=== PATIENT | female | born 1945 | race African-American/Black ===

== ENCOUNTER 2024-08-03 04:00 | Emergency (ER) | payer MEDICARE, SELFPAY ==
--- NOTE | ~2024-08-03 | XR_ITS ---
[XR ribs RT 2V w CXR 2V ] INDICATION: Right rib pain TECHNIQUE: Frontal projection of the upper right ribs, frontal projection of the lower right ribs, ob lique projection of all the right ribs, frontal inspiratory chest x-ray for interpretation. FINDINGS: There are no displaced rib fractures identified. There are no soft tissue abnormality see n. The lungs are clear. 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 IMPRESSION: 1:No acute displaced rib fractures. Reviewed, dictated and finalized at location A. ECTIONS TECHNICIAN
--- NOTE | ~2024-08-03 | CT_ITS ---
EXAMINATION: CT facial & cervical spine wo DATE: 08/03/2024 04:36 INDICATION: Status post fall. Head trauma. TECHNIQUE: Computed tomography (CT) of the maxillofacial region and cervical spine was performed with out intravenous contrast. The dose-length product (DLP) was 181.39 mGy-cm. Automated exposure control and iterative reconstruction technique were employed. COMPARISON: No prior studies for comparison. FINDINGS: MAXILLOFACIAL CT: There are multiple small radiopaque densities in the overlying soft tissues surrounding the facial amelia tracy of uncertain clinical significance. There is deformity of the anterior wall of the left maxillary sinus as well as the left orbital floor, consistent with fractures. There is orbital gas along the l ower orbital floor. There is left maxillary air-fluid level which is high density, consistent with he morrhage. There is fracture of the lateral wall of the left maxillary sinus lamina papyracea is intac t. There is extensive mucosal thickening of the right maxillary, ethmoid sinuses. Air-fluid level pre sent in the sphenoid sinus. Zygomatic arches, pterygoid plates, mandible are intact. There is nondisp laced fracture left nasal bone. CERVICAL SPINE CT: Straightening of cervical lordosis. There is degenerative anterolisthesis at C2-3. There is severe sp ondylosis at C3-4, C4-5, C5-6 and C6-7 characterized by disc narrowing and endplate hypertrophy and s clerosis. Odontoid process is normal. Craniovertebral junction. No evidence for perched facet. 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 Lateral masses normally aligned. There is advanced multilevel uncinate and facet hypertrophy. There is emphysema in the lung apices. No acute fracture or traumati c malalignment. IMPRESSION: 1. Left orbital, maxillary sinus and nasal fractures with hemorrhage in the left maxillary sinus. 2: No acute abnormality of the cervical spine. Severe cervical spondylosis. Reviewed, dictated and finalized at location A. YTICS SENIOR MANAGER IMPRESSION: 1. Left orbital, maxillary sinus and nasal fractures with hemorrhage in the lef t maxillary sinus. 2: No acute abnormality of the cervical spine. Severe cervical spondylosis.
--- NOTE | ~2024-08-03 | CT_ITS ---
EXAMINATION: CT BRAIN W/O DATE: 08/03/2024 04:36 INDICATION: Head injury after fall. TECHNIQUE: Computed tomography (CT) of the head was performed without intravenous contrast. The dose- length product was 605.33 mGy-cm. Automated exposure control and iterative reconstruction technique w ere employed. COMPARISON: No prior studies for comparison. FINDINGS: Normal brain parenchymal volume for age. Normal hyatt-white differentiation. No acute intrac ranial hemorrhage, infarction, mass or mass effect. There is high density fluid in the left maxillary sinus, consistent with hemorrhage. There are air-fl uid levels in the ethmoid and sphenoid sinuses. There is orbital gas in the post septal location, nathalie picious for orbital floor fracture. There is also a possible fracture involving the left maxillary si nus wall. There is orbital gas with suggestion of an orbital floor fracture on the left. IMPRESSION: 1. No acute intracranial abnormality. 2: Probable fractures of the left orbital floor and maxillary sinus with hemorrhage in the left maxil adilia sinus. Reviewed, dictated and finalized at location A. PATIAL IMAGERY INTELLIGENCE ANALYST IMPRESSION: 1. No acute intracranial abnormality. 2: Probable fractures of the left orbital floor and maxillary sinus with hemorr jessica in the left maxillary sinus.
--- OUTSIDE RECORDS SUMMARY | 2024-08-03 04:03 | XMS_ITS | Encounter Summary ---
Author Organization [facility] Medical [facility] Address [address] [place] [address] Care Team Providers Care Electrode Cleaning Machine Operator Name Role Phone Vitor Avina MD Primary Care Provider + [phone] Sally Mayer MIXER HELPER Primary Care Provider + [phone] Sally Mayer MIXER HELPER Primary Care Provider + [phone] Sally Mayer MIXER HELPER Primary Care Provider + [phone] Gurwinder Pardo MIXER HELPER Primary Care Provi liz Carlos Howe MD Unavailable +[phone] Srinivas Marsh DPM, Gabriel Unavailable + [phone] Ludy Calvillo MD Unavailable +[phone] Rufina Castro MD Unavailable +[phone] Cari Chan MIXER HELPER Primary Care Provider [phone] Priscilla Moran MD Unavailable +[phone] Ami Horne OD Unavailable [phone] Woodrow Engel MD Primary Care Provider [phone] Yolette Moran DPM Unavailable [phone] Ami Horne OD Unavailable [phone] Billie Summers MD Unavailable [phone] Encounter Details Date Type Department Care Team (Late st Contact Info) Description 07/22/2016 Orders Only [facility] ProviderJocelyn MD [address] [place] [address] Social History Tobacco Use Types Packs/Day Years Used Date Smoking Tobacco: Never Alcohol Use Standard Drinks/Week Comments No 0 (1 standard drink = 0.6 oz pur e alcohol) Comments Unknown Sex and Gender Information Value Date Recorded Sex Assigned at Not on file Legal Sex Female 4:33 PM OPHTHALMIC TECH Gender Identity Female 04/08/2020 10:03 AM CDT Sexual Orientation Straight 07/09/2019 11 :55 AM OPHTHALMIC TECH documented as of this encounter Plan of Treatment Not on file documented as of this encounter Procedures Procedure Name Priority Date/Time Associated Diagnosis Comments CARDIOLOGY REPORT 07/22/2016 documented in this encounter Results * CARDIOLOGY REPORT (07/22/2016) Anatomical Region Laterality Modality Other Narrative 07/22/2016 Ordered by an unspecified provider. Historical Provider [facility] Final Result documented in this encounter Visit Diagnoses Not on filedocumented in this encounter Care Teams Electrode Cleaning Machine Operator Relationship Specialty Start Date End Date Vitor Avina MD [address] [place] [address] PCP - General 08/16/16 09/02/16 Sally Mayer MIXER HELPER [address] [place] [address] [address] PCP - General 10/01/16 12/01/17 Sally Mayer, MIXER HELPER [address] [place] [address] [address] PCP - General 09/03/16 09/30/16 Sally Mayer MIXER HELPER [address] [address] PCP - General 05/22/15 08/15/16 [place] [address] [address] PCP - General Family Practice 12/02/17 01/04/18 Cari Chan NP [address] [address] PCP - General Family Medicine 03/13/21 12/01/21 Woodrow Engel MD [address] [place] [address] PCP - General Family Medicine 12/02/21 [place] [address] [address] Consulting Physician Cardiology 01/05/18 Juarez Espino Jr., DPM [address] [address] Referring Physician 01/05/18 12/01/21 [place] [address] [address] Referring Physician Internal Medicine 01/05/18 Rufina Alcantara MD [address] [facility] [address] [place] [address] Referring Physician Obstetrics and Gynecology 01/05/18 12/05/22 [place] [address] [facility] [address] [place] [address] Consulting Physician Endocrinology 04/30/21 Ami Horne, OD [address] [facility] [place] [address] Optometry 04/30/21 Yolette Moran DPM [address] [place] [address] [id number] Consulting Physician Foot and Ankle Surg 12/02/21 Ami Horne, SHAILESH [address] [facility] [place] [address] Optometry 06/03/22 Billie Summers MD [address] [place] [address] DR JOHN [address] [place] [address] Consulting Physician Obstetrics and Gynecology 12/06/22 documented as of this encounter
--- OUTSIDE RECORDS SUMMARY | 2024-08-03 04:03 | XMS_ITS | Clinical Summary ---
Author Organization [facility] Address [address] [place] [address] Care Team Providers [employer] Name Role Phone Carlos Howe MD Unavailable [phone] Priscilla Moran MD Unavailable [phone] Ami Horne OD Unavailable [phone] Woodrow Engel MD Primary Care Provider Yolette MoranM Unavailable [phone] Ami Horne OD Unavailable Billie Summers MD Unavailable [phone] Allergies Active Allergy Reactions Criticality Noted Date Comments Nitrofurantoin Macrocrystalline Rash Medium 03/2006 Sulfa (Sulfonamide Antibiotics) Hives,Itching Medium Medications multivitamin tablet tablet take 1 tablet by oral route every day with food 0 2 Active calcium citrate-vitamin D3 (CALCIUM CITRATE + D) 315-200 mg-unit per tablet take 1 by Oral route every day 0 2 Active vit C/vit E ac/lut/copper/zi nc (PRESERVISION LUTEIN ORAL) Take 1 tablet by mouth daily 9 Active ibuprofen (ADVIL,MOTRIN) 600 mg tabletIndication s:Anti-inflammat ory Take 1 tablet (600 mg total) by mouth every 8 (eight) hours as needed for pain 270 tablet 3 Active cartilage/collag en/bor/hyalur (MOVE FREE ULTRA TRIPLE ACTION ORAL) 7 Active psyllium 0.52 gram capsule 3 Active OneTouch Delica Plus Lancet 33 gauge misc ONE TOUCH DELICA PLUS 33 G CHECK BLOOD SUGAR DAILY 4 Active blood glucose diagnostic stripIndications :Type 2 diabetes mellitus with hyperglycemia, without long-term current use of insulin ([facility]) One Touch Ultra Lite Test Strips Use to test blood sugar once daily. (Non insulin dependent E11.65) 100 strip 6 4 Active glipiZIDE (GLUCOTROL) 10 mg tabletIndication s:Type 2 diabetes mellitus with hyperglycemia, without long-term current use of insulin ([facility]) Take 1 tablet (10 mg total) by mouth 2 (two) times a day before breakfast and dinner 180 tablet 3 4 08/24/19 25 Active dapagliflozin propanediol (Farxiga) 10 mg tabletIndication s:Type 2 diabetes mellitus with hyperglycemia, without long-term current use of insulin ([facility]) TAKE 1 TABLET BY MOUTH EVERY DAY 90 tablet 2 4 Active zolpidem (AMBIEN) 5 mg tablet Take 1 tablet (5 mg total) by mouth daily as needed for sleep 30 tablet 1 4 Active clotrimazole-bet amethasone (LOTRISONE) cream Apply topically 2 (two) times a day 45 g 1 4 Active famotidine (PEPCID) 40 mg tabletIndication s:Gastroesophage al reflux disease without esophagitis TAKE 1 TABLET BY MOUTH EVERY DAY 90 tablet 1 4 Active bimatoprost (LATISSE) 0.03 % ophthalmic solution APPLY 1 DROP VIA APPLICATOR EVERY NIGHT AT BEDTIME 4 Active losartan (COZAAR) 50 mg tabletIndication s:Hypertension associated with type 2 diabetes mellitus (HCC) TAKE 1 TABLET BY MOUTH DAILY 90 tablet 3 4 Active diltiaZEM CD (CARDIZEM CD) 360 mg 24 hr capsule TAKE 1 CAPSULE BY MOUTH DAILY 90 capsule 4 Active semaglutide (Ozempic) 0.25 mg or 0.5 mg (2 mg/3 mL) pen injector injectionIndicat ions:Type 2 diabetes mellitus with hyperglycemia, without long-term current use of insulin (HCC) Inject 0.25 mg under the skin once a week 2 mL 3 4 06/11/20 25 Active Active Problems Problem Noted Date Diagnosed Date CKD (chronic kidney disease) stage 3, GFR 30-59 ml/min 12/19/2023 Medicare annual wellness visit, subsequent 06/13 Assessment & Plan (06/19/2024 11:32 AM FOOT ROENTGENOLOGIST): A(n) yearly Medicare Annual Wellness Visit has been performed today. Kathy Hill is not up to date on screening tests. She is in need of Hepatitis B screen. She is up to date on needed preventative vaccinations. We discussed healthy lifestyle habits, educational material has been given. Medications reviewed, changes documented as per the medical record and discussed with patient along with risks vs benefits. Specific topics reviewed: drugs, ETOH, and tobacco, importance of regular dental care, importance of regular exercise, importance of varied diet, limit TV, media violence, minimize junk food, and seat belts. Return in 6 months Assessment & Plan (06/13/2023 10:46 AM FOOT ROENTGENOLOGIST): A(n) yearly Medicare Annual Wellness Visit has been performed today. Kathy Hill is up to date on screening tests. She is in need of None- no screening indicated at this time. She is up to date on needed preventative vaccinations. We discussed healthy lifestyle habits, educational material has been given. Medications reviewed, changes documented as per the medical record and discussed with patient along with risks vs benefits. Discussed postherpetic neuralgia Return in 6 months Well woman exam 08/30/2022 Overview (09/05/2023): Lab: Pap: h/o abnormal prior to hyst, last done 08/30/22 Lipid: per PCP TSH: per PCP CBC: per PCP CMP: per PCP Babak: Last done 07/21/23, negative for malignancy Colonoscopy: Last done 2016, follow-up in 2026 BMD: Last done 02/01/22, WNL Gardasil: Not indicated Assessment & Plan (09/05/2023 11:05 AM FOOT ROENTGENOLOGIST): Complete exam done. The patient was seen and examined with Dr. Alvarez, PGY1 Assessment & Plan (08/30/2022 9:56 AM FOOT ROENTGENOLOGIST): Complete exam done. Hormone replacement therapy (HRT) 08/30/2022 Assessment & Plan (09/05/2023 4:56 PM FOOT ROENTGENOLOGIST): She is not happy about having HF and night sweats Options discussed. She is wanting to go back on HRT after reviewing that the current recommendation is to stop after 60 as it is hard on the heart and may increase her risk of [place] Currently her DM is under control She is only going to see cardiology yearly States the HF/NS are going to kill her if she doesn't get something. Declines other non hormonal options. To start on 1/2 tablet to avoid breast tenderness. If her sx are controlled with this, she can stay on it and not increase. Assessment & Plan (09/15/2022 9:36 AM CDT): I spoke with the pt (09/15/22 9:35 phone call)) about her HRT. She is doing so well on it, it is hard to recommend any change. We discussed the recent article by the AHA supporting the use of ERT up to age 60, but recommending stopping after that. She is worried about sx and I do think she will have some after stopping especially if she goes cold turkey. I would recommend if she is going to stop, then she should wean, 1/2 the tablet the 1/4 it q 6 weeks. She will think about. If she gets off of it and has sx we will have to find another way to deal with them as restarting HRT would not be recommended. Gastroesophageal reflux disease without esophagi tis 08/04/2022 Overview (08/04/2022): continuing Pepcid 40 mg qhs cardiac work up with her tire sorter was negative. Administrative encounter 06/03/2022 Assessment & Plan (06/03/2022 1:31 PM FOOT ROENTGENOLOGIST): A(n) yearly [facility] Encounter has been performed today. Kathy Hill is up to date on screening tests. She is in need of None- no screening indicated at this time- eye exam performed this year at [facility]. She is up to date on needed preventative vaccinations Labs as ordered Referrals also ordered as requested BP is controlled Continuing current regimen Microalbuminuria due to type 2 diabetes mellitus ([facility]) 04/16/2020 Assessment & Plan (06/11/2024 9:20 AM FOOT ROENTGENOLOGIST): Resolved. On PAOLA-I / ARB: Losartan 50mg. Last MA: 01/24/23 (16). Assessment & Plan (08/25/2023 11:29 AM FOOT ROENTGENOLOGIST): Resolved. On PAOLA-I / ARB: Losartan 50mg. Last MA: 01/24/23 (16). Assessment & Plan (05/16/2023 10:55 AM FOOT ROENTGENOLOGIST): Chronic problem; improved. On PAOLA-I / ARB: Losartan 50mg. Last MA: 01/24/23 (16). Assessment & Plan (01/24/2023 10:51 AM CDT): Chronic problem. On PAOLA-I / ARB: Losartan 50mg. Last MA: 12/02/21 (45). Will update MA/Cr today. Verified that she uses [employer]. Aware to check results/results letter in [employer]. Will contact by phone if needed. Assessment & Plan (07/12/2022 10:36 AM FOOT ROENTGENOLOGIST): Pt on losartan BP and DM well controlled Assessment & Plan (01/11/2022 9:59 AM CDT): Pt on losartan BP and DM well controlled Assessment & Plan (05/02/2021 1:10 PM CDT): Continue Arb. Last microalbumin 04/08/2021 normal Assessment & Plan (01/12/2021 1:33 PM CDT): Pt on losartan BP and DM well controlled Assessment & Plan (07/28/2020 1:22 PM FOOT ROENTGENOLOGIST): Pt on losartan BP and DM well controlled Diabetes mellitus 01/05/2018 Assessment & Plan (06/11/2024 9:20 AM FOOT ROENTGENOLOGIST): Chronic problem. A1c stable at 6.7%. no changes at this time. Again discussed decreasing glipizide to 5mg bid if BG start to lower consistently. Current medications: Glipizide 10mg twice daily before breakfast & dinner Farxiga 10mg daily Ozempic 0.25mg weekly UTD on DM eye exam (09/13/23). Will update MA/Cr today. Verified that she uses my[employer]. Aware to check results/results letter in [employer]. Will contact by phone if needed. Strive for regular exercise (30min most days) and diet (get at least 4-5 servings of fruit and veggies daily, avoid processed foods, increase lean protein intake and decrease carb portions as well as fruit juices, regular soda & desserts). Watch carbs and simple sugars. Check the feet daily for skin breakdown and infection. Assessment & Plan (12/26/2023 2:10 PM CDT): Chronic problem. A1c stable at 6.7%. no changes at this time. Again discussed decreasing glipizide to 5mg bid if BG start to lower consistently. Current medications: Glipizide 10mg twice daily before breakfast & dinner Farxiga 10mg daily Ozempic 0.25mg weekly UTD on DM eye exam (09/13/23). Will update MA/Cr today. Verified that she uses my[employer]. Aware to check results/results letter in [employer]. Will contact by phone if needed. Strive for regular exercise (30min most days) and diet (get at least 4-5 servings of fruit and veggies daily, avoid processed foods, increase lean protein intake and decrease carb portions as well as fruit juices, regular soda & desserts). Watch carbs and simple sugars. Check the feet daily for skin breakdown and infection. Assessment & Plan (08/25/2023 11:31 AM FOOT ROENTGENOLOGIST): Chronic problem. A1c improved from 8.5% 05/16/23 to now 6.7%. denies any hypoglycemia. Has not lost weight with ozempic. Discussed decreasing glipizide to 5mg bid if BG start to lower consistently. Current medications: Glipizide 10mg twice daily before breakfast & dinner Farxiga 10mg daily Ozempic 0.25mg weekly UTD on DM eye exam (09/2022, scheduled 09/13/23). UTD on labs. Strive for regular exercise (30min most days) and diet (get at least 4-5 servings of fruit and veggies daily, avoid processed foods, increase lean protein intake and decrease carb portions as well as fruit juices, regular soda & desserts). Watch carbs and simple sugars. Check the feet daily for skin breakdown and infection. Assessment & Plan (05/16/2023 11:30 AM FOOT ROENTGENOLOGIST): Chronic problem. A1c increasing steadily throughout this year. A1c was 7.1% 07/2022, 7.8% 01/2023 now 8.5%. Reviewed diet/activity. Carb heavy diet. Info on ADA website (looked at it during appt w/Mrs Hill). Stressed need to exercise 20-30 min/day. Has been taking meds as prescribed but A1c continues to rise. Will trial Ozempic. Reviewed med SE & scheduling. To stop if she loses weight. To monitor BS. She will let me know if too expensive. Please start 20-30 min activity/day. Current medications: Glipizide 10mg twice daily before breakfast & dinner Farxiga 10mg daily Ozempic 0.25mg weekly UTD on DM eye exam. UTD on labs. Strive for regular exercise (30min most days) and diet (get at least 4-5 servings of fruit and veggies daily, avoid processed foods, increase lean protein intake and decrease carb portions as well as fruit juices, regular soda & desserts). Watch carbs and simple sugars. Check the feet daily for skin breakdown and infection. Assessment & Plan (01/24/2023 11:31 AM CDT): Chronic problem. A1c worsening. Does not feel that the glipizide 10mg bid is helpful. Will add farxiga 10mg daily to glipizide 10mg bid. Will monitor BS & drop glipizide to 5mg bid. To send me a mychart in 1-2 weeks with BS readings. UTD on DM eye exam. Will update MA/Cr today. Verified that she uses [employer]. Aware to check results/results letter in [employer]. Will contact by phone if needed. Strive for regular exercise (30min most days) and diet (get at least 4-5 servings of fruit and veggies daily, avoid processed foods, increase lean protein intake and decrease carb portions as well as fruit juices, regular soda & desserts). Watch carbs and simple sugars. Check the feet daily for skin breakdown and infection. Assessment & Plan (07/12/2022 10:36 AM FOOT ROENTGENOLOGIST): Chronic, overall fairly controlled A1c - 7.1 % Advised to take glipizide 10 mg - 1/2 tab with breakfast and 1 tab with dinner Advise to take glipizide 30 min before meals And Also advised to switch her lunch with dinner and viseversa Counseled on hypoglycemia - recommend annual dilated eye exam - try to obtain pt last eye exam copy Daily foot care - f/w in 6 months Assessment & Plan (01/11/2022 10:00 AM CDT): Chronic, uncontrolled, slight worsening A1c - 7.2 % Advise to change glipizide to 5 mg oral BID with meals If having low BS advise to back off on glipizide and notify us Counseled on hypoglycemia - recommend annual dilated eye exam Daily foot care - f/w in 6 months Assessment & Plan (05/02/2021 1:11 PM CDT): Diabetes is well controlled on glipizide 5 mg daily. Continue regular follow-up with endocrinology Assessment & Plan (01/12/2021 1:33 PM CDT): Chronic, Improving control A1c - 6.2 % Keep working on portion, carb controlled diet and exercise Advise to continue Glipizide XL 5 Mg oral daily with meals Advise pt to check BS 2-3 x weekly Keep up annual dilated eye exam Daily foot care Follow up in 12 months Assessment & Plan (07/28/2020 1:23 PM FOOT ROENTGENOLOGIST): Chronic, Improving control A1c - 6.2 % Keep working on portion, carb controlled diet and exercise Advise to continue Glipizide XL 5 Mg oral daily with meals Advise pt to check BS 2-3 x weekly Keep up annual dilated eye exam Daily foot care Follow up in 6 months Assessment & Plan (01/14/2020 1:36 PM CDT): Chronic, Fair controlled A1c - 6.8 % Keep working on portion, carb controlled diet and exercise Advise to continue Glipizide XL to 5 Mg oral daily with dinner Advise pt to check BS 2-3 x weekly Keep up annual dilated eye exam Daily foot care Follow up in 6 months Assessment & Plan (07/18/2019 9:07 AM FOOT ROENTGENOLOGIST): Chronic, Fair controlled A1c - 6.7 % Advise to increase Glipizide XL to 5 Mg oral daily with dinner Advise pt to check BS 2-3 x weekly Check A1c in 3 months Keep up annual dilated eye exam Daily foot care Follow up in 6 months Hypertension associated with type 2 diabetes elissa litus 01/05/2018 Assessment & Plan (06/24/2024 10:00 PM FOOT ROENTGENOLOGIST): Blood Pressure Follow-up: Lifestyle modifications education provided on sodium reduction, increase physical activity, reduce alcohol consumption, and weight reduction. A1c stable at 6.7% Continuing diltiazem CD, losartan, glipizide, Farxiga Assessment & Plan (06/11/2024 9:20 AM FOOT ROENTGENOLOGIST): Chronic problem. Controlled on current Losartan 50mg daily, diltiazem CD 360mg daily. No changes at this time. Assessment & Plan (12/26/2023 2:10 PM CDT): Chronic problem. Controlled on current Losartan 50mg daily, diltiazem CD 360mg daily. No changes at this time. Assessment & Plan (08/25/2023 11:31 AM FOOT ROENTGENOLOGIST): Chronic problem. Controlled on current Losartan 50mg daily, diltiazem CD 360mg daily. No changes at this time. Assessment & Plan (05/16/2023 10:50 AM FOOT ROENTGENOLOGIST): Chronic problem. Controlled on current Losartan 50mg daily, diltiazem CD 360mg daily. No changes at this time. Assessment & Plan (01/24/2023 10:50 AM CDT): Chronic problem. Controlled on current Losartan 50mg daily, diltiazem CD 360mg daily. No changes at this time. Assessment & Plan (12/09/2022 9:01 PM CDT): Will recheck labs in 4 months Continuing current regimen BP is controlled Continuing diltiazem, losartan, glipizide Assessment & Plan (07/12/2022 10:35 AM FOOT ROENTGENOLOGIST): Chronic, well controlled, continue Losartan Assessment & Plan (01/11/2022 9:58 AM CDT): Chronic, well controlled, continue current medication regimen Assessment & Plan (05/02/2021 1:10 PM CDT): Hypertension is improving with treatment. Continue current treatment regimen. Dietary sodium restriction. Continue current medications. Continue diltiazem 360 mg once daily and losartan 50 mg daily Blood pressure will be reassessed at the next regular appointment. Assessment & Plan (01/12/2021 1:33 PM CDT): Chronic, well controlled, continue current medication regimen Assessment & Plan (07/28/2020 1:22 PM FOOT ROENTGENOLOGIST): Chronic, well controlled, continue current medication regimen Assessment & Plan (01/14/2020 1:35 PM CDT): Chronic, well controlled, continue current medication regimen Assessment & Plan (07/18/2019 9:08 AM FOOT ROENTGENOLOGIST): Chronic, well controlled, continue current medication regimen Hypokalemia 01/05/2018 Diastolic dysfunction without heart failure 04/03 Paroxysmal supraventricular tachycardia 07/22/19 17 Overview (10/08/2016): PSVT (paroxysmal supraventricular tachycardia) Assessment & Plan (05/02/2021 1:09 PM CDT): Well controlled on diltiazem 360 mg once daily. Continue regular follow-up with Cardiology. Assessment & Plan (06/15/2017 8:27 PM FOOT ROENTGENOLOGIST): Controlled at this time. Following with tire sorter. Trochanteric bursitis 05/22/2015 Overview (10/08/2016): Trochanteric bursitis of right hip Palpitations 01/14/2014 Insomnia 01/14/2014 Assessment & Plan (06/15/2017 8:33 PM FOOT ROENTGENOLOGIST): Plan to start Ambien 5 mg at HS prn. Primary osteoarthritis of knee 12/29/2005 Other chest pain 12/10/2005 Allergic rhinitis 05/26/2004 Resolved Problems Problem Noted Date Diagnosed Date Resolved Date [facility] 01/24/2023 Assessment & Plan (12/04/2021 2:30 PM CDT): A(n) initial well visit to establish care has been performed today. Kathy Hill is up to date on screening tests. She is in need of DEXA and Diabetic eye exam- we are getting records. She is up to date on needed preventative vaccinations Labs as ordered Continuing the current regimen Continuing follow up Dr. Ramos-Richard Bilateral impacted cerumen 04/16/2020 1 Osteoarthrosis involving lower leg 01/05/2018 01/05/2018 Helicobacter pylori infection 01/05/2018 01/05/2018 Abnormal glucose tolerance test 01/05/2018 01/05/2018 Routine general medical exam ination at a health care facility 01/05/2018 01/05/2018 Sleep disturbance 01/05/2018 01/05/2018 Dyslipidemia associated with type 2 diabetes mellitus 10/26/2017 01/05/2018 Dizziness 07/22/2016 01/05/2018 Overview (10/08/2016): Dizziness Shortness of breath 07/22/2016 01/06/20 18 Overview (01/05/2018): PEDERSEN (dyspnea on exertion) Benign essential hypertension 08/13/2014 01/05/2018 Overview (10/08/2016): Benign essential hypertension Polyp of vagina 03/19/2014 08/30/2022 Chronic pelvic pain in female 01/14/2014 01/05/2018 Postmenopausal bleeding 01/14/201411/2017 Leiomyoma of uterus, unspecified 01/14/2014 01/05/2018 Constipation 01/14/2014 01/05/2018 Vaginitis and vulvovaginitis 01/14/2014 04/04/2018 Mitral valve prolapse 01/14/20142017 Other specified abnormal fin dings of blood chemistry 02/04/2009 01/05/2018 Type 2 or unspecified type d iabetes mellitus, uncontrolled 01/16/2008 04/04/2018 Assessment & Plan (06/15/2017 8:29 PM FOOT ROENTGENOLOGIST): Diabetes is well controlled. Hgb A1c today was 6.6%. Continue current treatment regimen. Reminded to bring in blood sugar diary at next visit. Dietary recommendations for ADA diet. Regular aerobic exercise. Discussed ways to avoid symptomatic hypoglycemia. Discussed sick day management. Discussed foot care. Reminded to get yearly retinal exam. Diabetes will be reassessed in 3 months. Asymptomatic postmenopausal status 12/10/2005 01/05/2018 Other general symptoms 12/10/200501/05 Urinary tract infection 12/10/200511/2017 Encounter for long-term (cur rent) use of other medications 05/26/2004 01/05/2018 Low back pain 05/26/2004 01/05/2018 Osteoarthrosis 05/26/2004 01/05/2018 Localized superficial swelling, mass, or lump 03/10/2001/05/2018 Backache 11/22/2000 01/05/2018 Other and unspecified hyperlipidemia 10/13/2000 01/05/2018 Abdominal pain 10/13/2000 01/05/2018 Other symptoms involving digestive system 10/13/2000 01/05/2018 Screening for malignant neop lasm of the rectum 10/13/2000 01/05/2018 Encounters Date Type Department Care Team Description 07/23/2024 11:15 AM FOOT ROENTGENOLOGIST - 07/23/2024 11:59 PM FOOT ROENTGENOLOGIST Hospital Encounter [facility] Imaging and Radiology [address] [place] [id number] Screening mammogram, encounter for Discharge Disposition: Discharge to home or self care 06/19/2024 11:15 AM FOOT ROENTGENOLOGIST Office Visit [facility] at [address] [phone] Woodrow Engel MD Medicare annual wellness visit, subsequent (Primary Dx); Microalbuminuria due to type 2 diabetes mellitus (CMS/HCC) (HCC); Hypertension associated with type 2 diabetes mellitus (HCC); Diastolic dysfunction without heart failure; Paroxysmal supraventricular tachycardia (CMS/HCC); Gastroesophageal reflux disease without esophagitis; Stage 3a chronic kidney disease (HCC) 06/15/2024 Telephone [facility] Diabetes and Endocrinology [address] [place] [phone] Rola Singh NP Test Results (Labs) 06/14/2024 Orders Only [facility] Diabetes and Endocrinology [address] [place] [address] [phone] Rola Singh NP Acute cystitis without hematuria (Primary Dx) 06/11/2024 10:04 AM FOOT ROENTGENOLOGIST - 06/11/2024 11:59 PM FOOT ROENTGENOLOGIST Hospital Encounter [address] [address] Type 2 diabetes mellitus with hyperglycemia, without long-term current use of insulin ([facility]); Cloudy urine; Foul smelling urine Discharge Disposition: Discharge to home or self care 06/11/2024 10:00 AM FOOT ROENTGENOLOGIST Lab [facility] Outpatient Lab at [address] [phone] 06/11/2024 9:30 AM FOOT ROENTGENOLOGIST Office Visit [facility] Diabetes and Endocrinology [address] [place] [phone] Rola Singh, PRESS MANAGER Type 2 diabetes mellitus with hyperglycemia, without long-term current use of insulin (HCC) (Primary Dx); Hypertension associated with type 2 diabetes mellitus (HCC); Cloudy urine; Foul smelling urine 06/11/2024 Telephone [facility] Diabetes and Endocrinology [address] [place] [phone] Rola Singh, PRESS MANAGER samples of Ozempic 06/05/2024 9:49 AM FOOT ROENTGENOLOGIST - 06/05/2024 11:59 PM FOOT ROENTGENOLOGIST Hospital Encounter [place] [phone] Hypertension associated with type 2 diabetes mellitus (HCC) Discharge Disposition: Discharge to home or self care 06/05/2024 9:45 AM FOOT ROENTGENOLOGIST Lab [facility] Medical [facility] Outpatient Lab at [address] [phone] Hypertension associated with type 2 diabetes mellitus (HCC) (Primary Dx) from Last 3 Months Immunizations Name Administration Dates Next Due Influenza, Quad, Adjuvantate d, Intramuscular 04/15/2023 Influenza, Quadrivalent, Hig h Dose, Preservative Free, Intrr 04/04/2022,04/16/2020 Influenza, Quadrivalent, Spl it, Preservative Free, Intramuscular 04/04/2018 Influenza, Trivalent, Adjuva nted, Intramuscular 04/12/2024 Influenza, Trivalent, High D ose, Split, Preservative Free, Intramuscular 04/03/2016 Influenza, Trivalent, IM (MDV) 04/03/2015,2013 Influenza, Unspecified 07/04/2022(Deferr ed: Patient Refused),04/14/2022,07/04/2021(Deferre d: Patient Refused),04/03/2021,04/03/2017 Pfizer Sars-Cov-2 Bivalent V accination (12+ YRS) 03/24/2022 Pneumococcal Conjugate PCV 13 08/05/2016, 014 Pneumococcal Polysaccharide PPV23 07/04/2016, RSV Vaccine, Pref, Recombina nt, Subunit, Adjuvanted, PF, IM (Arexvy) 05/08/2023 Tdap 12/28/2018 ZOSTER LIVE 07/04/2013 ZOSTER Recombinant 06/16/2020,04/16/2020 Surgical History Surgery Date Site/Laterality Comments BREAST BIOPSY 07/04/1964 Left DILATION AND CURETTAGE OF UTERUS multiple from [id number] TUBAL LIGATION 07/04/1994 - 07/03/1995 ROTATOR CUFF REPAIR 07/04/2011 - 07/03/2012 Right TOTAL ABDOMINAL HYSTERECTOMY W/ BILATERAL SALPINGOOPHORECTOMY 07/04/2013 - 07/03/2014 Done to treat large benign tumor. CATARACT EXTRACTION 07/04/2016 - 07/03/2017 FOOT SURGERY Right metarsal Medical History Medical History Date Comments Osteoarthritis Osteoarthritis Rotator cuff tear 2010 Hyperlipidemia 10/13/2000 Type 2 diabetes mellitus (HCC) 01/16/2008 Hypertension Helicobacter pylori infection 01/05/2018 Mitral valve prolapse 01/14/2014 Constipation 01/14/2014 Family History Medical History Relation Name Comments No Known Problems Father Prostate cancer Maternal Grandfather Bobby Lopez age unknown Diabetes Maternal Grandmother Deedee Thomas, Dementia Mother Deloyd Prothro in memory car e Hypertension Mother Deloyd Prothro Memory loss Mother Deloyd Prothro Diabetes Mother's Sister 1 Ailyn Madison Hypertension Mother's Sister 1 Ailyn Skye Stomach cancer Mother's Sister 1 Ailyn Skye Stroke Mother's Sister 2 Margy M Toro No Known Problems Paternal Grandfather No Known Problems Paternal Grandmother Diabetes Sister Deedee Johnson Hypertension Sister Deedee Johnson Obesity Sister Deedee Johnson Breast cancer Neg Hx Cancer Neg Hx no colon, breas t or studio owner cancer 08/30/22 Endometrial cancer Neg Hx Ovarian cancer Neg Hx Thyroid cancer Neg Hx Relation Name Status Comments Father Maternal Grandfather Bobby Lopez Maternal Grandmother Deedee Thomas, Mother Deloyd Prothro Mother's Sister 1 Ailyn Skye Mother's Sister 2 Margy M Toro Paternal Grandfather Paternal Grandmother Sister Deedee Johnson Social History Tobacco Use Types Packs/Day Years Used Date Smoking Tobacco: Never Passive Smoke Exposure: Never Smokeless Tobacco: Never Tobacco Cessation:Counseling Given: Not Answered Alcohol Use Standard Drinks/Week Comments No 0 (1 standard drink = 0.6 oz pur e alcohol) Humiliation, Afraid, Rape, and Kick questionnair e Answer Date Recorded Within the last year, have y ou been afraid of your partner or ex-partner? No 08/30/2022 Within the last year, have y ou been humiliated or emotionally abused in other ways by your partner or ex-partner? No Within the last year, have y ou been kicked, hit, slapped, or otherwise physically hurt by your partner or ex-partner? No 08/30/2022 Within the last year, have y ou been raped or forced to have any kind of sexual activity by your partner or ex-partner? No 08/30/2022 AUDIT-C Answer Date Recorded Q1: How often do you have a drink containing alcohol? Never 06/13/2023 Q2: How many drinks containi ng alcohol do you have on a typical day when you are drinking? Patient does not drink Q3: How often do you have si x or more drinks on one occasion? Never 06/13/2023 PHQ-2 Answer Date Recorded PHQ-2 Total Score (If total score is 3 or more points, staff should administer the PHQ-9) 0 06/19/2024 Education Answer Date Recorded What is the highest level of school you have completed or the highest degree you have received? 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 Not on file Not on file Obstetrics History Para Term AB IAB SAB Ectopic Multiple Livin g Live Births 1 1 1 1 1 Date Outcome GA Total Labor Labor/2nd/3rd Weight Sex Type Anes PTL Crystal A1 A5 Name Clin 12/20 72 Term 38w 0d 2.24 kg (4 lb 15 oz) M Vag-S pont Epidura l Living Complications:None Last Filed Vital Signs Vital Sign Reading Time Taken Comments Blood Pressure 144/80 06/19/2024 11:27 AM FOOT ROENTGENOLOGIST Pulse 71 06/19/2024 11:27 AM FOOT ROENTGENOLOGIST Temperature 35.9 ??C (96.7 ??F) 06/19/2024 11:[address] Respiratory Rate 16 06/19/2024 11:27 AM FOOT ROENTGENOLOGIST Oxygen Saturation 96% 06/19/2024 11:27 AM FOOT ROENTGENOLOGIST Inhaled Oxygen Concentration - - Weight 59 kg (130 lb) 06/19/2024 11:27 AM FOOT ROENTGENOLOGIST Height 163.2 cm (5' 4.25 ) 06/19/2024 11:[address] Body Mass Index 22.14 06/19/2024 11:27 AM FOOT ROENTGENOLOGIST Plan of Treatment Health Maintenance Due Date Last Done Comments Hepatitis B Screening 1963 Foot Exam 08/25/2024 08/25/2023, 03/2023, 01/11/2022, Additional history exists Dilated Eye Exam 09/12/2024 09/13/2023, 01/2023, 10/03/2021, Additional history exists Hemoglobin A1C 12/04/2024 06/05/2024, 0 09/2023, 08/25/2023, Additional history exists Lipid Panel 06/05/2025 06/05/2024, 04/04, 12/05/2023, Additional history exists eGFR 06/05/2025 06/05/2024, 09/2023, 06/08/2023, Additional history exists Albumin Creatinine Ratio, Urine 06/11/2025 06/11/2024, 01/24/2023, 12/02/2021, Additional history exists Depression Screening 06/19/2025 06/19/2024, 06/11/2024, 12/19/2023, Additional history exists Fall Risk Assessment 06/19/2025 06/19/2024, 06/11/2024, 12/19/2023, Additional history exists Well Visit 65+ 06/19/2025 06/19/2024, 06/03, 06/03/2022, Additional history exists Osteoporosis Screening-Bone Density Scan 02/19/2026 02/20/2024, 02/01/2022, 12/19/2019, Additional history exists DTaP/Tdap/Td Vaccine (2 - Td or Tdap) 12/28/2028 12/28/2018 Pneumococcal vaccine 65+ Completed 017, 07/04/2016, 07/04/2013, Additional history exists Colon Cancer Screening-CT Colonography Discontinued 09/03/2016 Colon Cancer Screening-Colonoscopy Discontinued 09/03/2016 Colon Cancer Screening-DNA Stool Discontinued 09/04/19 17 Colon Cancer Screening-FIT Discontinued 09/03/2016 Colon Cancer Screening-FOBT Discontinued 09/03/2016 Colon Cancer Screening-Sigmoidoscopy Discontinued 09/03/2016 Colorectal Cancer Screening Discontinued Hepatitis C Screening Completed 12/28/2018 Zoster Vaccine Completed 06/16/2020, 04/03, 07/04/2013 Covid-19 Vaccine Completed 04/12/2024, , 03/24/2022, Additional history exists Influenza Vaccine Completed 04/12/2024, , 04/14/2022, Additional history exists Breast Cancer Screening-Mammogram Discontinued 07/23/2024, 07/21/2023, 07/14/2022, Additional history exists Procedures Procedure Name Priority Date/Time Associated Diagnosis Comments SCREENING MAMMOGRAM BILATERAL W TAY Schedule Routine, Read Routine (OP Routine) 07/23/2024 11:36 AM FOOT ROENTGENOLOGIST Screening mammogram, encounter for URINALYSIS, MICROSCOPIC ONLY Routine 06/11/2024 10:04 AM FOOT ROENTGENOLOGIST Cloudy urine Foul smelling urine ALBUMIN CREATININE RATIO, URINE Routine 06/11/2024 10:04 AM FOOT ROENTGENOLOGIST Type 2 diabetes mellitus with hyperglycemia, without long-term current use of insulin (HCC) URINE CULTURE Routine 06/11/2024 10:04 AM FOOT ROENTGENOLOGIST URINALYSIS AND REFLEX TO MICROSCOPIC AND CULTURE Routine 06/11/2024 10:04 AM FOOT ROENTGENOLOGIST Cloudy urine Foul smelling urine POCT GLUCOSE Routine 06/11/2024 9:28 AM FOOT ROENTGENOLOGIST Type 2 diabetes mellitus with hyperglycemia, without long-term current use of insulin (HCC) EGFR Routine 06/05/2024 9:49 AM FOOT ROENTGENOLOGIST Hypertension associated with type 2 diabetes mellitus (HCC) DIFFERENTIAL AUTO Routine 06/05/2024 9:4 9 AM FOOT ROENTGENOLOGIST Hypertension associated with type 2 diabetes mellitus (HCC) HEMOGLOBIN A1C Routine 06/05/2024 9:49 AM FOOT ROENTGENOLOGIST Hypertension associated with type 2 diabetes mellitus (HCC) LIPID PANEL Routine 06/05/2024 9:49 AM FOOT ROENTGENOLOGIST Hypertension associated with type 2 diabetes mellitus (HCC) COMPREHENSIVE METABOLIC PANEL Routine 06/05/2024 9:49 AM FOOT ROENTGENOLOGIST Hypertension associated with type 2 diabetes mellitus (HCC) CBC WITH AUTO DIFFERENTIAL Routine 06/05/2024 9:49 AM FOOT ROENTGENOLOGIST Hypertension associated with type 2 diabetes mellitus (HCC) DEXA AXIAL SKELETON BONE DENSITY 1 OR MORE SITES Schedule Routine, Read Routine (OP Routine) 02/20/2024 11:02 AM CDT Screening for osteoporosis Asymptomatic menopausal state HM DIABETES EYE EXAM Routine 09/13/2023 9:59 AM CDT HEPATITIS C ANTIBODY Routine 12/28/2018 11:29 AM CDT Encounter for hepatitis C screening test for low risk patient COLONOSCOPY REPORT 09/03/2016 from Last 3 Months or Most Recently Relevant to Health Maintenance Results * Screening Mammogram Bilateral W Tay (07/23/2024 11:36 AM FOOT ROENTGENOLOGIST) Anatomical Region Laterality Modality Breast Bilateral Mammography 07/23/2024 2:37 PM FOOT ROENTGENOLOGIST Impressions 07/23/2024 2:37 PM FOOT ROENTGENOLOGIST No evidence of malignancy in either breast. FINAL ASSESSMENT: BI-RADS Category 1: Negative. RECOMMENDATION: Recommend return for annual screening mammogram in 12 months. ?? Electronically signed by: MD Slava Ortega 07/23/2024 2:37 PM FOOT ROENTGENOLOGIST EXAMINATION: BILATERAL SCREENING MAMMOGRAM COMPARISON: Mammography 07/21/2023, 07/14/2022, 06/24/2021 TECHNIQUE: Full-field 2D and digital breast tomosynthesis (DBT) images were obtained. CAD was utilized. BREAST PARENCHYMAL COMPOSITION: ??There are scattered areas of fibroglandular density. FINDINGS: There is no suspicious mass, calcification, or distortion in either breast. us Self Screening Mammogram IMG MAMMO PROCEDURES Fi nal Result * (ABNORMAL) Urinalysis reflex to microscopic and culture Urine (06/11/2024 10:04 AM FOOT ROENTGENOLOGIST) Color, ur Yellow Yellow Clarity, ur Turbid(A) Clear [facility] Specific gravity, ur 1.014 1.003 - 1.030 [facility] pH, urine 6.5 [facility] Comment: Interpretive Data ? Urine pH is affected by diet, medications, systemic acid-base disturbances, and renal tubular function. ??pH may affect urinary stone formation. ??For example, urine pH below 6.0 may help reduce the tendency for calcium phosphate stones and pH greater than 6.0 may reduce the tendency for uric acid stone formation. Source: [facility] [employer] Current Interpretive Data was last revised on 2017 Protein, ur ql Negative Negative [facility] Glucose, ur ql 4+(A) Negative [facility] Ketones, ur Negative Negative [facility] Bilirubin, ur Negative Negative [facility] Blood, ur Negative Negative [facility] Urobilinogen, ur <2.0 <2.0 mg/dL [facility] Nitrite, ur Positive(A) Negative [facility] Leukocyte esterase, ur 4+(A) Negative [facility] UA reflex comment Reflex to microscopic UA will be performed. [facility] Urine 06/11/2024 10:0 4 AM FOOT ROENTGENOLOGIST 06/11/2024 3:01 PM FOOT ROENTGENOLOGIST Rola Singh NP LAB MICROBIOLOGY - GENERA L ORDERABLES Final Result [facility] [id number] [place] [address] * Albumin Creatinine Ratio, Urine (06/11/2024 10:04 AM FOOT ROENTGENOLOGIST) Albumin Ur <12.0 mg/L Comment: Interpretive Data No reference range established. Current interpretive data was last revised 2018. Creatinine Ur 112.4 mg/dL [facility] Comment: Interpretive Data No reference range established. Current interpretive data was last revised 2018. Albumin Creatinine Ratio, Ur <11 1 - 29 mg/g [facility] Urine 06/11/2024 10:0 4 AM FOOT ROENTGENOLOGIST 06/11/2024 3:01 PM FOOT ROENTGENOLOGIST us Rolazuly Singh PRESS MANAGER LAB URINE ORDERABLES Elisha l Result Performing Organization Address [facility] de Phone Number [facility] [id number] [employer] [place] [address] * (ABNORMAL) Urinalysis, microscopic only (06/11/2024 10:04 AM FOOT ROENTGENOLOGIST) WBC, ur >50(A) 0 - 5 /HPF RBC, ur 3-5(A) 0 - 2 /HPF [facility] Epithelial cells, squamous, ur 1-5 0 - 5 /HPF [facility] Bacteria, ur 3+(A) [facility] Culture Reflex Comment Reflex to urine culture will be performed. [facility] Urine 06/11/2024 10:0 4 AM FOOT ROENTGENOLOGIST 06/11/2024 3:01 PM FOOT ROENTGENOLOGIST us Rola Singh PRESS MANAGER LAB URINE ORDERABLES Elisha l Result Performing Organization Address [facility] de Phone Number [facility] [id number] Department of [employer] [place], [place] [id number] * (ABNORMAL) Urine culture Urine (06/11/2024 10:04 AM FOOT ROENTGENOLOGIST) Report Final Report: Greater than or equal to 100,000 colonies/mL of Klebsiella pneumoniae Greater than or equal to 100,000 colonies/mL of Escherichia coli (.) Comment:Testing performed by : [facility], [address] [facility], [place]., [address] Organism KLEBSIELLA PNEUMONIAE [facility] Organism ESCHERICHIA COLI [facility] Urine 06/11/2024 10:0 4 AM FOOT ROENTGENOLOGIST 06/11/2024 6:53 PM FOOT ROENTGENOLOGIST Narrative ALIN - 06/14/2024 12:39 PM FOOT ROENTGENOLOGIST Urine culture reflexed based upon urinalysis results. Testing performed by [facility] ([phone]) Organism Antibiotic Method Susceptibility Klebsiella pneumoniae Ampicillin INTERPRETATION Resistant Klebsiella pneumoniae Cefazolin INTERPRETATION Susceptible Klebsiella pneumoniae Nitrofurantoin INTERPRETATION Susceptible Klebsiella pneumoniae Gentamicin INTERPRETATION Susceptible Klebsiella pneumoniae Trimethoprim with Sulfamethoxazole INTERPRETATION Susceptible Klebsiella pneumoniae Meropenem INTERPRETATION Susceptible Klebsiella pneumoniae Cefepime INTERPRETATION Susceptible Klebsiella pneumoniae Ciprofloxacin INTERPRETATION Susceptible Klebsiella pneumoniae Ceftazidime INTERPRETATION Susceptible Klebsiella pneumoniae Ceftriaxone INTERPRETATION Susceptible Klebsiella pneumoniae Piperacillin/Tazobactam INTERPRE TATION Susceptible Klebsiella pneumoniae Cephalexin INTERPRETATION Susceptible Klebsiella pneumoniae Cefuroxime-axetil INTERPRETATION Susceptible Klebsiella pneumoniae Cefdinir INTERPRETATION Susceptible Escherichia coli Ampicillin INTERPRETATION Susceptible Escherichia coli Cefazolin INTERPRETATION Susceptible Escherichia coli Nitrofurantoin INTERPRETATION Susceptible Escherichia coli Gentamicin INTERPRETATION Susceptible Escherichia coli Trimethoprim with Sulfamethoxazole INTERPRETATION Susceptible Escherichia coli Meropenem INTERPRETATION Susceptible Escherichia coli Cefepime INTERPRETATION Susceptible Escherichia coli Ciprofloxacin INTERPRETATION Susceptible Escherichia coli Ceftazidime INTERPRETATION Susceptible Escherichia coli Ceftriaxone INTERPRETATION Susceptible Escherichia coli Piperacillin/Tazobactam INTERPRETATIO N Susceptible Escherichia coli Cephalexin INTERPRETATION Susceptible Escherichia coli Cefuroxime-axetil INTERPRETATION Susceptible Escherichia coli Cefdinir INTERPRETATION Susceptible us Rola Singh NP LAB MICROBIOLOGY - GENERA L ORDERABLES Final Result [facility] [id number] Department [place] [address] * POCT glucose (06/11/2024 9:28 AM FOOT ROENTGENOLOGIST) Pathologist [facility] Glucose Blood, POC 134 mg/dL Blood 06/11/2024 9:28 AM FOOT ROENTGENOLOGIST us Rola Singh PRESS MANAGER POINT OF CARE TEST ORDERA BLES Final Result * (ABNORMAL) eGFR (06/05/2024 9:49 AM FOOT ROENTGENOLOGIST) Pathologist [facility] eGFR 57(L) >=60 mL/min/1. 73 m2 Comment: Interpretive Data Reference Interval Normal ?>/= 90 mL/min/1.73m2 Mildly decreased* ? 60 - 89 mL/min/1.73m2 Mildly to moderately decreased ?45 - 59 mL/min/1.73m2 Moderately to severely decreased ??30 - 44 mL/min/1.73m2 Severely decreased ?15 - 29 mL/min/1.73m2 Kidney Failure ?< 15 ??mL/min/1.73m2 *Relative to young adult level Estimated glomerular filtration rate is determined by the 2020 CKD-EPI equation recommended by the National Kidney Foundation (A Unifying Approach to GFR Estimation: Recommendations of the NKF-ASK Task Force on Reassessing the Inclusion of Race in Diagnosing Kidney Disease, JASN 2020). The CKD-EPI equation should not be used for patients with unstable renal function and has not been validated in children and those over 70. Current interpretive data was last reviewed 2021. Blood 06/05/2024 9:49 AM FOOT ROENTGENOLOGIST 06/05/2024 5:25 PM FOOT ROENTGENOLOGIST us Woodrow Engel MD LAB BLOOD ORDERABLES Final Result Performing Organization Address City/State/[facility] Co ma Phone Number [facility] [id number] [place] [address] * Differential, auto (06/05/2024 9:49 AM FOOT ROENTGENOLOGIST) Neutrophil abs 4.5 1.5 - 6.5 K/cumm Imm gran abs 0.0 0.0 - 0.1 K/cumm [facility] Lymphocyte abs 1.4 0.8 - 3.3 K/cumm [facility] Monocyte abs 0.5 0.2 - 0.8 K[facility] Eosinophil abs 0.1 0.0 - 0.5 K/cumm [facility] Basophil abs 0.1 0.0 - 0.1 K/cumm [facility] Neutrophil pct 68.4 % [facility] Comment: Interpretive Data Percent cell count reference ranges are not reported, since discordance with absolute values may lead to misinterpretation of CBC data. Current Interpretive Data was last revised on 2017. Imm gran pct 0.5 % [facility] Comment: Interpretive Data Percent cell count reference ranges are not reported, since discordance with absolute values may lead to misinterpretation of CBC data. Current Interpretive Data was last revised on 2017. Lymphocyte pct 20.9 % [facility] Comment: Interpretive Data Percent cell count reference ranges are not reported, since discordance with absolute values may lead to misinterpretation of CBC data. Current Interpretive Data was last revised on 2017. Monocyte pct 7.9 % [facility] Comment: Interpretive Data Percent cell count reference ranges are not reported, since discordance with absolute values may lead to misinterpretation of CBC data. Current Interpretive Data was last revised on 2017. Eosinophil pct 1.5 % [facility] Comment: Interpretive Data Percent cell count reference ranges are not reported, since discordance with absolute values may lead to misinterpretation of CBC data. Current Interpretive Data was last revised on 2017. Basophil pct 0.8 % [facility] Comment: Interpretive Data Percent cell count reference ranges are not reported, since discordance with absolute values may lead to misinterpretation of CBC data. Current Interpretive Data was last revised on 2017. Blood 06/05/2024 9:49 AM FOOT ROENTGENOLOGIST 06/05/2024 5:04 PM FOOT ROENTGENOLOGIST us Woodrow Engel MD LAB BLOOD ORDERABLES Final Result [facility] [id number] Department [place] [address] * (ABNORMAL) CBC with auto differential (06/05/2024 9:49 AM FOOT ROENTGENOLOGIST) WBC 6.6 3.8 - 9.9 K/cumm Hgb 14.0 11.9 - 15.5 g/dL [facility] Hct 45.2 35.6 - 45.5 % [facility] Plt 315 150 - 400 K/cumm [facility] MPV 9.0(L) 9.1 - 12.3 fL [facility] RBC 5.29(H) 3.90 - 5.20 M/cumm [facility] MCV 85.4 81.3 - 96.4 fL [facility] MCH 26.5(L) 27.1 - 33.3 pg [facility] MCHC 31.0(L) 32.3 - 35.7 g/dL [facility] RDW CV 16.2(H) 11.1 - 14.9 % [facility] RDW SD 50.1(H) 35.7 - 48.1 fL [facility] NRBC abs 0.00 0.00 - 0.01 K/cumm [facility] Blood 06/05/2024 9:49 AM FOOT ROENTGENOLOGIST 06/05/2024 5:04 PM FOOT ROENTGENOLOGIST Woodrow Engel MD LAB BLOOD ORDERABLES Final Result Performing Organization Address [facility] de Phone Number [facility] [id number] [place] [address] * (ABNORMAL) Hemoglobin A1c (06/05/2024 9:49 AM FOOT ROENTGENOLOGIST) Hgb A1C 6.7(H) 4.0 - 5.6 % Estimated Average Glucose 146 mg/dL [facility] Comment: The ADA recommends reporting an estimated Average Glucose (eAG) with all Hemoglobin A1c results using the equation derived from a study of 507 normal and diabetic adults. ??Minority populations were underrepresented and children were not included. ?? (Diabetes Care 31:7829-5090, 2008). ??The eAG is not equivalent to a fasting glucose. Blood 06/05/2024 9:49 AM FOOT ROENTGENOLOGIST 06/05/2024 5:04 PM FOOT ROENTGENOLOGIST Woodrow Engel MD LAB BLOOD ORDERABLES Final Result Performing Organization Address [facility] Co de Phone Number [facility] [id number] Department [employer] [place], [place] [id number] * (ABNORMAL) Lipid panel (06/05/2024 9:49 AM FOOT ROENTGENOLOGIST) [facility] Signature Cholesterol 232(H) 30 - 199 mg/dL Comment: Interpretive Data Ages < or = 19 years ??Acceptable: ? <170 mg/dL ??Borderline high: ??170-199 mg/dL ??High: ? >or= 200 mg/dL Ages > or = 20 years ??Desirable: ?<200 mg/dL ??Borderline high: ??200-239 mg/dL ??High: ? >or= 240 mg/dL Literature References: 1. Expert Panel on Integrated Guidelines for Cardiovascular Health and Risk Reduction in Children and Adolescents. Pediatrics 2011;128:S213 2. NCEP Expert Panel. Circulation 2004;110:227 Current Interpretive Data was last revised on 2018. Triglycerides 90 <=149 mg/dL [facility] Comment: Interpretive Data Ages < or = 9 years ??Acceptable: ? <75 mg/dL ??Borderline high: ??75-99 mg/dL ??High: ? >or= 100 mg/dL Ages 10 to 20 years ??Acceptable: ? <90 mg/dL ??Borderline high: ??90-129 mg/dL ??High: ? >or= 130 mg/dL Ages > or = 20 years ??Desirable: ?<150 mg/dL ??Borderline high: ??150-199 mg/dL ??High: ? 200-499 mg/dL ?Very high: ?? >or= 499 mg/dL Literature References: 1. Expert Panel on Integrated Guidelines for Cardiovascular Health and Risk Reduction in Children and Adolescents. Pediatrics 2011;128:S213 2. NCEP Expert Panel. Circulation 2004;110:227 Current Interpretive Data was last revised on 2018. HDL 90 >=40 mg/dL [facility] Comment: Interpretive Data Ages < or = 19 years ??Acceptable: ? >45 mg/dL ??Borderline low: ?? 40-45 mg/dL ??Low: ? <40 mg/dL Ages > or = 20 years ??Desirable: ?>or= 60 mg/dL ??Low: ? <40 mg/dL Literature References: 1. Expert Panel on Integrated Guidelines for Cardiovascular Health and Risk Reduction in Children and Adolescents. Pediatrics 2011;128:S213 2. NCEP Expert Panel. Circulation 2004;110:227 Current Interpretive Data was last revised on 2018. LDL, calculated 127 <=129 mg/dL [facility] Comment: Interpretive Data Ages < or = 19 years ??Acceptable: ? <110 mg/dL ??Borderline high: ??110-129 mg/dL ??High: ?>or= 130 mg/dL Ages > or = 20 years ??Optimal: ? <100 mg/dL ??Near optimal: ?100-129 mg/dL ??Borderline high: ?? 130-159 mg/dL ??High: ?>160 mg/dL Calculated using the Omkar LDL-C estimating equation. This equation was implemented on 2024. Prior to this date LDL-C was estimated using the Friedewald equation. Literature References: 1. Expert Panel on Integrated Guidelines for Cardiovascular Health and Risk Reduction in Children and Adolescents. Pediatrics 2011;128:S213 2. NCEP Expert Panel. Circulation 2004;110:227 3. Omkar Valadez et al. RACHEL Cardiol. 2020 November 01;5(5):540-548. doi: 10.1001/[email or web address].2020.0013 Current Interpretive Data was last revised on 2024. Non-HDL Cholesterol 142 mg/dL [facility] Comment: Interpretive Data Ages < or = 19 years ??Acceptable: ?<120 mg/dL ??Borderline high: ??120-144 mg/dL ??High: ?>145 mg/dL Ages > or = 20 years ??When triglycerides are >200 mg/dL, Non-HDL cholesterol is a secondary target of ? therapy with treatment goals that are 30 mg/dL greater than the LDL cholesterol target. ? Literature References: 1. Expert Panel on Integrated Guidelines for Cardiovascular Health and Risk Reduction in Children and Adolescents. Pediatrics 2011;128:S213 2. NCEP Expert Panel. Circulation 2004;110:227 Current Interpretive Data was last revised on 2018. Chol/HDL ratio 3 [facility] Blood 06/05/2024 9:49 AM FOOT ROENTGENOLOGIST 06/05/2024 5:04 PM FOOT ROENTGENOLOGIST us Woodrow Engel MD LAB [place]LO[place] [id number] [address] Department [place] [address] * Comprehensive metabolic panel (06/05/2024 9:49 AM FOOT ROENTGENOLOGIST) Sodium 143 135 - 145 mmol/L Potassium, pl 4.5 3.3 - 4.9 mmol/L [facility] Chloride 105 97 - 110 mmol/L [facility] CO2 27 22 - 32 mmol/L [facility] Anion gap 11 2 - 15 mmol/L [facility] BUN 17 6 - 25 mg/dL [facility] Creatinine 1.02 0.60 - 1.10 mg/dL [facility] Glucose 165 70 - 199 mg/dL [facility] Comment: Interpretive Data Fasting glucose >/= 126 mg/dl is diagnostic for diabetes. ?? Fasting is defined as no caloric intake for at least 8 hours. Fasting glucose between 100 mg/dl to 125 mg/dl is diagnostic of prediabetes. In a patient with classic symptoms of hyperglycemia or hyperglycemic crisis, a random glucose >/= 200 mg/dl is diagnostic for diabetes. In the absence of unequivocal hyperglycemia, results should be confirmed by repeat testing. The classification and Diagnosis of Diabetes Diabetes Care 2021; 46: S19-S40. Current interpretive data was last revised 2022. Calcium 10.2 8.5 - 10.3 mg/dL [facility] Bilirubin, total 0.4 0.1 - 1.2 mg/dL [facility] Protein, pl 7.5 6.5 - 8.5 g/dL [facility] Albumin 4.4 3.5 - 5.0 g/dL [facility] Alk phos 64 40 - 130 Units/L [facility] ALT 23 7 - 45 Units/L [facility] AST 25 10 - 45 Units/L [facility] Blood 06/05/2024 9:49 AM FOOT ROENTGENOLOGIST 06/05/2024 5:04 PM FOOT ROENTGENOLOGIST us Woodrow Engel MD LAB BLOOD ORDERABLES Final Result ALIN [id number] [address] Department of Laboratories [place] [id number] * Dexa Axial Skeleton Bone Density 1 or 2 Site (02/20/2024 11:02 AM CDT) Anatomical Region Laterality Modality Body N/A Other 02/20/2024 11:4 9 AM CDT Impressions 02/20/2024 11:49 AM CDT Normal bone mineral density of lumbar spine at L1-L4 Normal bone density of the, total left hip and left femoral neck. 2.2 % decrease in bone mineral density in the spine and 1.4% decrease in the hip since previous study Electronically signed by: Rupesh Carrillo M.D. Narrative 02/20/2024 11:49 AM CDT Examination: ??DEXA AXIAL SKELETON BONE DENSITY 1 OR MORE SITES Date: 02/20/2024 11:00 AM ? History: Osteoporosis screening. Comparison: 02/01/2022 Findings: The bone densitometry of the L1-L4 region, the left femoral neck and the total left hip was calculated using dual-energy x-ray absorptiometry. ? Summary: Bone mineral density (BMD) of the lumbar spine (L1-4): ??T-score is -0.4; ??96% of normal ? Bone mineral density (BMD) of the total left hip: ??T-score 0.2; ??103% of normal ?? Bone mineral density (BMD) of the left femoral neck: ??T-score is -0.6; ??92% of normal ? Procedure Note Rupesh Carrillo MD - 02/20/2024 Examination: DEXA AXIAL SKELETON BONE DENSITY 1 OR MORE SITES Date: 02/20/2024 11:00 AM History: Osteoporosis screening. Comparison: 02/01/2022 Findings: The bone densitometry of the L1-L4 region, the left femoral neck and the total left hip was calculated using dual-energy x-ray absorptiometry. Summary: Bone mineral density (BMD) of the lumbar spine (L1-4): T-score is -0.4; 96% of normal Bone mineral density (BMD) of the total left hip: T-score 0.2; 103% of normal Bone mineral density (BMD) of the left femoral neck: T-score is -0.6; 92% of normal IMPRESSION: Normal bone mineral density of lumbar spine at L1-L4 Normal bone density of the, total left hip and left femoral neck. 2.2 % decrease in bone mineral density in the spine and 1.4% decrease in the hip since previous study Electronically signed by: Rupesh Carrillo M.D. Woodrow Engel MD IMG DXA PROCEDURES Final Re sult * HM DIABETES EYE EXAM (09/13/2023 9:59 AM CDT) Historical Provider HEALTH MAINTENANCE Final Result * Hepatitis C antibody (12/28/2018 11:29 AM CDT) Hep C Ab Negative Negative [facility] Blood specimen (specimen) 12/28/2018 11:29 AM CDT 12/28/2018 1:20 PM CDT Gurwinder Pardo NP LAB MICROBIOLOGY - GENERAL ORDERABLES Final Result ALIN KIMBR[facility] [id number] Department [place] [address] * COLONOSCOPY REPORT (09/03/2016) Anatomical Region Laterality Modality Other Narrative 09/03/2016 Ordered by an unspecified provider. us Historical Provider MD MALIK PROCEDURE ORDERABLES F inal Result from Last 3 Months or Most Recently Relevant to Health Maintenance Insurance [facility] [employer] MEDICARE GOLD AETNA MEDICARE GOLD Care Teams [employer] Relationship Specialty Start Date End Date Woodrow Engel MD [address] [place] [address] PCP - General Family Medicine 12/02/21 Carlos Howe MD Consulting Physician Cardiology 01/05/18 [place] [id number] [address] Consulting Physician Endocrinology 04/30/21 Ami Horne OD [address] [place] [address] [place] [address] Optometry 04/30/21 Yolette Moran DPM [address] [place] [address] Consulting Physician Foot and Ankle Surg 12/02/21 Ami Horne OD [address] [facility] [place] [address] Optometry 06/03/22 Billie Summers MD [address] [place] [address] Consulting Physician Obstetrics and Gynecology 12/06/22
--- OUTSIDE RECORDS SUMMARY | 2024-08-03 04:03 | XMS_ITS | Continuity of Care Document ---
Author Organization [facility] Address [address] [address] [place] [address] Phone Care Team Providers Care Cokeman Name Role Phone Quentin FERRER MD, John Unavailable Unavailable Allergies, Adverse Reactions, Alerts Substance Reaction Status Criticality NITROFURANTOIN MACROCRYSTALLINE Active No Information Medications Medication Instructions Dosage Effective Dates (start - stop) Status Comments Combigan 0.2 %-0.5 % eye drops instill 1 drop by ophthalmic route BID in operative eye beginning 1 day post-op continue for 4 days - Active HYDROCHLOROTHIAZIDE (unknown strength) Not Available - Active multivitamin tablet - Active NAPROXEN (unknown strength) Not Available - Active PREMPRO (unknown strength) Not Available - Active GLUCOSAMINE SULFATE (unknown strength) Not Available - Active Procedures Procedure Date AFTER CATARACT LASER SURGERY POSTOP FOLLOW-UP VISIT POSTOP FOLLOW-UP VISIT CATARACT SURG W/IOL, 1 STAGE OFFICE/OUTPATIENT VISIT, EST POSTOP FOLLOW-UP VISIT CATARACT SURG W/IOL, 1 STAGE OFFICE/OUTPATIENT VISIT, NEW OPHTHALMIC BIOMETRY OPHTHALMIC BIOMETRY DILATED EXAM RIGHT EYE DILATED EXAM LEFT EYE Advance Directives Directive Yes / No Effective Date File Name No Information Encounters Encounter Description Practice Location Reason(s) For Visit Diagnoses Date Provider Providers Copied on Encounter [facility], [address], [place], [place], [id number], tel:[phone] [facility] No Information 8 Quentin Lopez. [address], [place], [place], [id number], [place]. tel:[phone] Referring Provider: John Saavedra MD P, [address], [place], [place], [id number]. tel:[phone] [facility], [address] [place] [address], [id number], tel:[phone] [facility] No Information 8 Quentin Lopez. [address], [address], [place]. tel:[phone] [facility], [address] [place] [address], [id number], tel:[phone] [facility] no complaints OU (chief complaint)n o complaints (chief complaint)H appy with vision (chief complaint) No Information 6 Derheimer OD Emily. [address], [address] [place] [address], [id number], [place]. tel:[phone] Referring Provider: Emily Malone OD, [address], [id number]. tel:[phone] [facility], [address] [place] [address], [id number], tel:[phone] [facility]SULT [facility]ANE ZHONG no complaints OS (chief complaint)n o complaints (chief complaint) No Information 6 Byronheimer OD Emily. [address], [id number], [place]. tel:[phone] Referring Provider: Emily Malone OD, [address], [place], [place], [id number]. tel:[phone] [facility], [address] [place] [address], [id number], [place] tel:[phone] [facility] No Information 6 Quentin Lopez. [address], [place], [place], [address], [place]. tel:[phone] Referring Provider: John Saavedra MD P, [address], [place], [place], [address]. tel:[phone] OFFICE/OUTPA TIENT VISIT, [facility], [address] [place] [address], [id number], tel:[phone] [facility]ANE [facility]ONG Blurry vision (chief complaint)p seudophakia check (chief complaint) Pseudoaphaki aAge-related nuclear cataract, left eye Oct- 6 Derheimer OD Emily. [address], [address], [place], [place], [id number], [place]. tel:[phone] Referring Provider: Emily Malone OD, [address], [place], [place], [address]. tel:[phone] [facility], [address] [place] [address], [id number], tel:[phone] [facility]ONG no pain or discomfort OD (chief complaint)d rops burn OD (chief complaint)b lurry vision OD (chief complaint)n o pain or discomfort (chief complaint)d rops burn (chief complaint)b lurry vision (chief complaint) No Information 6 Derheimer OD Emily. [address], [place], [place], [address], [place]. tel:[phone] Referring Provider: Emily Malone OD, [address], [id number]. tel:[phone] [facility], [address] [place] [address], [id number], tel:[phone] [facility] No Information 6 Quentin Lopez. [address], [place], [place], [id number], [place]. tel:[phone] Referring Provider: John Wu, [address], [place], [place], [address]. tel:[phone] OFFICE/OUTPA TIENT VISIT, [facility], [address], [place], [place], [id number], tel:[phone] [facility] No Information 6 Quentin Lopez. [address], [place], [place], [address], [place]. tel:[phone] Referring Provider: John Wu, [address], [place], [place], [address]. tel:[phone] Family History Family Member Type Diagnosis Age At Onset Problem (finding) Family history of Glauc tameka Problem (finding) Family history of Diabe susanne mellitus Payers Payer name Insurance type Covered libertarian ID Authoriza tion(s) [facility] [id number] Social History Type Description Quantity Date Captured Comments Sex Female Smoking Status No Information Chief Complaint And Reason For Visit No Information Plan Of Treatment Date Type Action Status No Information History Of Present Illness Encounter Date Complaint History Of Prese nt Illness no complaints no complaints OU no complaints no complaints OS pseudophakia check The patient i s present for evaluation of pseudophakia check in the right eye. It started about 1 week(s) ago. The symptom is constant. The condition is stable. Blurry vision The 70 year old female presents for evaluation of Blurry vision in the left eye. It started about 1 year(s) ago. The symptom is constant. The condition is worsening. blurry vision blurry vision OD no pain or discomfort no pain or discomfort OD drops burn drops burn OD Instructions Date Instruction Additional Infor nicolle Impression/Plan - Ca taracts account for the patient's complaints. Discussed all risks, benefits, procedures and recovery. Patient understands changing glasses will not improve vision. Patient desires to have surgery, recommend phacoemulsification with intraocular lens. Related to Age-related nuclear cataract, left eye Impression/Plan - S/ P Cataract 1 Week 1st eye OD - Excellent post op course Post operative instructions reviewed --Continue Lotemax--Continue Prolensa--Continue Restasis--Advised patient to use artificial tears for comfort.Ref. 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
--- OUTSIDE RECORDS SUMMARY | 2024-08-03 04:03 | XMS_ITS | Referral Summary ---
Author Organization [facility] Address [address] [place] [address] Care Team Providers [employer] Molder Name Role Phone Carlos Howe MD Unavailable [phone] Priscilla Moran MD Unavailable [phone] Ami Horne OD Unavailable Woodrow Engel MD Primary Care Provider Yolette MoranM Unavailable Ami Horne OD Unavailable [phone] Billie Summers MD Unavailable [phone] Encounters Date Type Department Care Team Description 07/23/2024 11:15 AM MANAGER FILTER - 07/23/2024 11:59 PM MANAGER FILTER Hospital Encounter [facility] Imaging and Radiology [address] [place] [id number] Screening mammogram, encounter for Discharge Disposition: Discharge to home or self care 06/19/2024 11:15 AM MANAGER FILTER Office Visit [facility] Primary Care at [address] [phone] Woodrow Engel MD Medicare annual wellness visit, subsequent (Primary Dx); Microalbuminuria due to type 2 diabetes mellitus (CMS/HCC) (HCC); Hypertension associated with type 2 diabetes mellitus (HCC); Diastolic dysfunction without heart failure; Paroxysmal supraventricular tachycardia (CMS/HCC); Gastroesophageal reflux disease without esophagitis; Stage 3a chronic kidney disease (HCC) 06/15/2024 Telephone [facility] Diabetes and Endocrinology [address] [place] [phone] Rola Singh NP Test Results (Labs) 06/14/2024 Orders Only [facility] Diabetes and Endocrinology [address] [place] [phone] Rola Singh, TREY Acute cystitis without hematuria (Primary Dx) 06/11/2024 10:04 AM MANAGER FILTER - 06/11/2024 11:59 PM MANAGER FILTER Hospital Encounter [address] [phone] Type 2 diabetes mellitus with hyperglycemia, without long-term current use of insulin (HCC); Cloudy urine; Foul smelling urine Discharge Disposition: Discharge to home or self care 06/11/2024 10:00 AM MANAGER FILTER Lab [facility] Outpatient Lab at [address] [phone] 06/11/2024 Telephone [facility] Diabetes and Endocrinology [address] [place] [phone] Rola Singh NP samples of Ozempic 06/11/2024 9:30 AM MANAGER FILTER Office Visit [facility] Diabetes and Endocrinology [address] [place] [phone] Rola Singh, TREY Type 2 diabetes mellitus with hyperglycemia, without long-term current use of insulin (HCC) (Primary Dx); Hypertension associated with type 2 diabetes mellitus (HCC); Cloudy urine; Foul smelling urine 06/05/2024 9:49 AM MANAGER FILTER - 06/05/2024 11:59 PM MANAGER FILTER Hospital Encounter [address] [phone] Hypertension associated with type 2 diabetes mellitus (HCC) Discharge Disposition: Discharge to home or self care 06/05/2024 9:45 AM MANAGER FILTER Lab [facility] Outpatient Lab at [address] [phone] Hypertension associated with type 2 diabetes mellitus (HCC) (Primary Dx) from Last 3 Months Allergies Active Allergy Reactions Criticality Noted Date [...] hyperglycemia, without long-term current use of insulin ([facility]) One Touch Ultra Lite Test Strips Use to test blood sugar once daily. (Non insulin dependent E11.65) 100 strip 6 4 Active glipiZIDE (GLUCOTROL) 10 mg tabletIndication s:Type 2 diabetes mellitus with hyperglycemia, without long-term current use of insulin ([facility]) Take 1 tablet (10 mg total) by mouth 2 (two) times a day before breakfast and dinner 180 tablet 3 4 08/24/19 25 Active dapagliflozin propanediol (Farxiga) 10 mg tabletIndication s:Type 2 diabetes mellitus with hyperglycemia, without long-term current use of insulin ([facility]) TAKE 1 TABLET BY MOUTH EVERY DAY [...] 06/13 Assessment & Plan (06/19/2024 11:32 AM MANAGER FILTER): A(n) yearly Medicare Annual Wellness Visit has [...] months Assessment & Plan (06/13/2023 10:46 AM MANAGER FILTER): A(n) yearly Medicare Annual Wellness Visit has [...] indicated Assessment & Plan (09/05/2023 11:05 AM MANAGER FILTER): Complete exam done. The patient was seen and examined with Dr. Alvarez, PGY1 Assessment & Plan (08/30/2022 9:56 AM MANAGER FILTER): Complete exam done. Hormone replacement therapy (HRT) 08/30/2022 Assessment & Plan (09/05/2023 4:56 PM MANAGER FILTER): She is not happy about having HF and night sweats Options discussed. She is wanting to go back on HRT after reviewing that the current recommendation is to stop after 60 as it is hard on the heart and may increase her risk of MD Currently her DM is under control She [...] mg qhs cardiac work up with her hand fabric cutter was negative. Administrative encounter 06/03/2022 Assessment & Plan (06/03/2022 1:31 PM MANAGER FILTER): A(n) yearly [facility] Enhanced Encounter has been performed today. Kathy Hill is up to date on screening tests. She is in need of None- no screening indicated at this time- eye exam performed this year at [place]. She is up to date on needed preventative vaccinations Labs as ordered Referrals also ordered as requested BP is controlled Continuing current regimen Microalbuminuria due to type 2 diabetes mellitus ([facility]) 04/16/2020 Assessment & Plan (06/11/2024 9:20 AM MANAGER FILTER): Resolved. On PAOLA-I / ARB: Losartan 50mg. Last MA: 01/24/23 (16). Assessment & Plan (08/25/2023 11:29 AM MANAGER FILTER): Resolved. On PAOLA-I / ARB: Losartan 50mg. Last MA: 01/24/23 (16). Assessment & Plan (05/16/2023 10:55 AM MANAGER FILTER): Chronic problem; improved. On PAOLA-I / ARB: Losartan 50mg. Last MA: 01/24/23 (16). Assessment & Plan (01/24/2023 10:51 AM CDT): Chronic problem. On PAOLA-I / ARB: Losartan 50mg. Last MA: 12/02/21 (45). Will update MA/Cr today. Verified that she uses [facility]. Aware to check results/results letter in [facility]. Will contact by phone if needed. Assessment & Plan (07/12/2022 10:36 AM MANAGER FILTER): Pt on losartan BP and DM well controlled Assessment & Plan (01/11/2022 9:59 AM CDT): Pt on losartan BP and DM well controlled Assessment & Plan (05/02/2021 1:10 PM CDT): Continue Arb. Last microalbumin 04/08/2021 normal Assessment & Plan (01/12/2021 1:33 PM CDT): Pt on losartan BP and DM well controlled Assessment & Plan (07/28/2020 1:22 PM MANAGER FILTER): Pt on losartan BP and DM well controlled Diabetes mellitus 01/05/2018 Assessment & Plan (06/11/2024 9:20 AM MANAGER FILTER): Chronic problem. A1c stable at 6.7%. no changes at this time. Again discussed decreasing glipizide to 5mg bid if BG start to lower consistently. Current medications: Glipizide 10mg twice daily before breakfast & dinner Farxiga 10mg daily Ozempic 0.25mg weekly UTD on DM eye exam (09/13/23). Will update MA/Cr today. Verified that she uses [facility]. Aware to check results/results letter in [facility]. Will contact by phone if needed. Strive [...] update MA/Cr today. Verified that she uses [facility]. Aware to check results/results letter in [facility]. Will contact by phone if needed. Strive [...] infection. Assessment & Plan (08/25/2023 11:31 AM MANAGER FILTER): Chronic problem. A1c improved from 8.5% 05/16/23 [...] infection. Assessment & Plan (05/16/2023 11:30 AM MANAGER FILTER): Chronic problem. A1c increasing steadily throughout this year. A1c was 7.1% 07/2022, 7.8% 01/2023 now 8.5%. Reviewed diet/activity. Carb heavy diet. Info on ADA website (looked at it during appt w/ Liz). Stressed need to exercise 20-30 min/day. Has [...] to 5mg bid. To send me a [facility] in 1-2 weeks with BS readings. UTD on DM eye exam. Will update MA/Cr today. Verified that she uses [facility]. Aware to check results/results letter in [facility]. Will contact by phone if needed. Strive [...] infection. Assessment & Plan (07/12/2022 10:36 AM MANAGER FILTER): Chronic, overall fairly controlled A1c - 7.1 [...] months Assessment & Plan (07/28/2020 1:23 PM MANAGER FILTER): Chronic, Improving control A1c - 6.2 % [...] months Assessment & Plan (07/18/2019 9:07 AM MANAGER FILTER): Chronic, Fair controlled A1c - 6.7 % Advise to increase Glipizide XL to 5 Mg oral daily with dinner Advise pt to check BS 2-3 x weekly Check A1c in 3 months Keep up annual dilated eye exam Daily foot care Follow up in 6 months Hypertension associated with type 2 diabetes elissa litus 01/05/2018 Assessment & Plan (06/24/2024 10:00 PM MANAGER FILTER): Blood Pressure Follow-up: Lifestyle modifications education provided on sodium reduction, increase physical activity, reduce alcohol consumption, and weight reduction. A1c stable at 6.7% Continuing diltiazem CD, losartan, glipizide, Farxiga Assessment & Plan (06/11/2024 9:20 AM MANAGER FILTER): Chronic problem. Controlled on current Losartan 50mg daily, diltiazem CD 360mg daily. No changes at this time. Assessment & Plan (12/26/2023 2:10 PM CDT): Chronic problem. Controlled on current Losartan 50mg daily, diltiazem CD 360mg daily. No changes at this time. Assessment & Plan (08/25/2023 11:31 AM MANAGER FILTER): Chronic problem. Controlled on current Losartan 50mg daily, diltiazem CD 360mg daily. No changes at this time. Assessment & Plan (05/16/2023 10:50 AM MANAGER FILTER): Chronic problem. Controlled on current Losartan 50mg [...] glipizide Assessment & Plan (07/12/2022 10:35 AM MANAGER FILTER): Chronic, well controlled, continue Losartan Assessment & [...] regimen Assessment & Plan (07/28/2020 1:22 PM MANAGER FILTER): Chronic, well controlled, continue current medication regimen Assessment & Plan (01/14/2020 1:35 PM CDT): Chronic, well controlled, continue current medication regimen Assessment & Plan (07/18/2019 9:08 AM MANAGER FILTER): Chronic, well controlled, continue current medication regimen Hypokalemia 01/05/2018 Diastolic dysfunction without heart failure 04/03 Paroxysmal supraventricular tachycardia 07/22/19 17 Overview (10/08/2016): PSVT (paroxysmal supraventricular tachycardia) Assessment & Plan (05/02/2021 1:09 PM CDT): Well controlled on diltiazem 360 mg once daily. Continue regular follow-up with Cardiology. Assessment & Plan (06/15/2017 8:27 PM MANAGER FILTER): Controlled at this time. Following with hand fabric cutter. Trochanteric bursitis 05/22/2015 Overview (10/08/2016): Trochanteric bursitis of right hip Palpitations 01/14/2014 Insomnia 01/14/2014 Assessment & Plan (06/15/2017 8:33 PM MANAGER FILTER): Plan to start Ambien 5 mg at HS prn. Primary osteoarthritis of knee 12/29/2005 Other chest pain 12/10/2005 Allergic rhinitis 05/26/2004 Resolved Problems Problem Noted Date Diagnosed Date Resolved Date Encounter for medical [facility] 12/04/2021 01/24/2023 Assessment & Plan (12/04/2021 [...] the current regimen Continuing follow up Dr. Brown Bilateral impacted cerumen 04/16/2020 1 Osteoarthrosis involving [...] 04/04/2018 Assessment & Plan (06/15/2017 8:29 PM MANAGER FILTER): Diabetes is well controlled. Hgb A1c today [...] neop lasm of the rectum 10/13/2000 01/05/2018 Immunizations Name Administration Dates Next Due Influenza, Quad, Adjuvantate d, Intramuscular 04/15/2023 Influenza, Quadrivalent, Hig h Dose, Preservative Free, Intrr 04/04/2022,04/16/2020 Influenza, Quadrivalent, Spl it, Preservative Free, Intramuscular 04/04/2018 Influenza, Trivalent, Adjuva nted, Intramuscular 04/12/2024 Influenza, Trivalent, High D ose, Split, Preservative Free, Intramuscular 04/03/2016 Influenza, Trivalent, IM (MDV) 04/03/2015,2013 Influenza, Unspecified 07/04/2022(Deferr ed: Patient Refused),04/14/2022,07/04/2021(Deferre d: Patient Refused),04/03/2021,04/03/2017 TareasPlus Sars-Cov-2 Bivalent V accination (12+ YRS) 03/24/2022 Pneumococcal Conjugate PCV 13 08/05/2016, 014 Pneumococcal Polysaccharide PPV23 07/04/2016, RSV Vaccine, Pref, Recombina nt, Subunit, Adjuvanted, PF, IM (Arexvy) 05/08/2023 Tdap 12/28/2018 ZOSTER LIVE 07/04/2013 ZOSTER Recombinant 06/16/2020,04/16/2020 Social History Tobacco Use Types Packs/Day Years [...] on file Legal Sex Female 4:33 PM MANAGER FILTER Gender Identity Female 04/08/2020 10:03 AM CDT Sexual Orientation Straight 07/09/2019 11 :55 AM MANAGER FILTER 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 Not on file Not on file Last Filed Vital Signs Vital Sign Reading Time Taken Comments Blood Pressure 144/80 06/19/2024 11:27 AM MANAGER FILTER Pulse 71 06/19/2024 11:27 AM MANAGER FILTER Temperature 35.9 ??C (96.7 ??F) 06/19/2024 11:[address] Respiratory Rate 16 06/19/2024 11:27 AM MANAGER FILTER Oxygen Saturation 96% 06/19/2024 11:27 AM MANAGER FILTER Inhaled Oxygen Concentration - - Weight 59 kg (130 lb) 06/19/2024 11:27 AM MANAGER FILTER Height 163.2 cm (5' 4.25 ) 06/19/2024 11:[address] Body Mass Index 22.14 06/19/2024 11:27 AM MANAGER FILTER Plan of Treatment Not on file Procedures Procedure Name Priority Date/Time Associated Diagnosis Comments SCREENING MAMMOGRAM BILATERAL W TAY Schedule Routine, Read Routine (OP Routine) 07/23/2024 11:36 AM MANAGER FILTER Screening mammogram, encounter for URINALYSIS, MICROSCOPIC ONLY Routine 06/11/2024 10:04 AM MANAGER FILTER Cloudy urine Foul smelling urine ALBUMIN CREATININE RATIO, URINE Routine 06/11/2024 10:04 AM MANAGER FILTER Type 2 diabetes mellitus with hyperglycemia, without long-term current use of insulin (HCC) URINE CULTURE Routine 06/11/2024 10:04 AM MANAGER FILTER URINALYSIS AND REFLEX TO MICROSCOPIC AND CULTURE Routine 06/11/2024 10:04 AM MANAGER FILTER Cloudy urine Foul smelling urine POCT GLUCOSE Routine 06/11/2024 9:28 AM MANAGER FILTER Type 2 diabetes mellitus with hyperglycemia, without long-term current use of insulin (HCC) EGFR Routine 06/05/2024 9:49 AM MANAGER FILTER Hypertension associated with type 2 diabetes mellitus (HCC) DIFFERENTIAL AUTO Routine 06/05/2024 9:4 9 AM MANAGER FILTER Hypertension associated with type 2 diabetes mellitus (HCC) HEMOGLOBIN A1C Routine 06/05/2024 9:49 AM MANAGER FILTER Hypertension associated with type 2 diabetes mellitus (HCC) LIPID PANEL Routine 06/05/2024 9:49 AM MANAGER FILTER Hypertension associated with type 2 diabetes mellitus (HCC) COMPREHENSIVE METABOLIC PANEL Routine 06/05/2024 9:49 AM MANAGER FILTER Hypertension associated with type 2 diabetes mellitus (HCC) CBC WITH AUTO DIFFERENTIAL Routine 06/05/2024 9:49 AM MANAGER FILTER Hypertension associated with type 2 diabetes mellitus [...] Mammogram Bilateral W Tay (07/23/2024 11:36 AM MANAGER FILTER) Anatomical Region Laterality Modality Breast Bilateral Mammography 07/23/2024 2:37 PM MANAGER FILTER Impressions 07/23/2024 2:37 PM MANAGER FILTER No evidence of malignancy in either breast. FINAL ASSESSMENT: BI-RADS Category 1: Negative. RECOMMENDATION: Recommend return for annual screening mammogram in 12 months. ?? Electronically signed by: Stacey Montelongo MD Narrative 07/23/2024 2:37 PM MANAGER FILTER EXAMINATION: BILATERAL SCREENING MAMMOGRAM COMPARISON: Mammography 07/21/2023, [...] microscopic and culture Urine (06/11/2024 10:04 AM MANAGER FILTER) Color, ur Yellow Yellow Clarity, ur Turbid(A) [...] tendency for uric acid stone formation. Source: [facility] [employer] Current Interpretive Data was last revised on [...] Reflex to microscopic UA will be performed. [facility] Urine 06/11/2024 10:0 4 AM MANAGER FILTER 06/11/2024 3:01 PM MANAGER FILTER Rola Singh NP LAB MICROBIOLOGY - GENERA L ORDERABLES Final Result [facility] [id number] [address] Department [place] [address] * Albumin Creatinine Ratio, Urine (06/11/2024 10:04 AM MANAGER FILTER) Albumin Ur <12.0 mg/L Comment: Interpretive Data No reference range established. Current interpretive data was last revised 2018. Creatinine Ur 112.4 mg/dL [facility] Comment: Interpretive Data No reference range established. Current interpretive data was last revised 2018. Albumin Creatinine Ratio, Ur <11 1 - 29 mg/g [facility] Urine 06/11/2024 10:0 4 AM MANAGER FILTER 06/11/2024 3:01 PM MANAGER FILTER Rolazuly Singh SALES REPRESENTATIVE BUSINESS COURSES LAB URINE ORDERABLES Elisha l Result Performing Organization Address [facility] de Phone Number ALIN KIMBROUGH [id number] [address] [facility] [employer] [place], [place] [id number] * (ABNORMAL) Urinalysis, microscopic only (06/11/2024 10:04 AM MANAGER FILTER) WBC, ur >50(A) 0 - 5 /HPF RBC, ur 3-5(A) 0 - 2 /HPF [facility] Epithelial cells, squamous, ur 1-5 0 - 5 /HPF [facility] Bacteria, ur 3+(A) [facility] Culture Reflex Comment Reflex to urine culture will be performed. [facility] Urine 06/11/2024 10:0 4 AM MANAGER FILTER 06/11/2024 3:01 PM MANAGER FILTER Rola Singh SALES REPRESENTATIVE BUSINESS COURSES LAB URINE ORDERABLES Elisha l Result Performing Organization Address [facility] de Phone Number ALIN KIMBROUGH [address] [address] [facility] [place] [address] * (ABNORMAL) Urine culture Urine (06/11/2024 10:04 AM MANAGER FILTER) Report Final Report: Greater than or equal to 100,000 colonies/mL of Klebsiella pneumoniae Greater than or equal to 100,000 colonies/mL of Escherichia coli (.) Comment:Testing performed by : [facility], [address] [facility], [place]., [address] Organism KLEBSIELLA PNEUMONIAE [facility] Organism ESCHERICHIA COLI [facility] Urine 06/11/2024 10:0 4 AM MANAGER FILTER 06/11/2024 6:53 PM MANAGER FILTER Narrative [facility] - 06/14/2024 12:39 PM MANAGER FILTER Urine culture reflexed based upon urinalysis results. Testing performed by [facility] Microbiology Laboratory ([phone]) Organism Antibiotic Method Susceptibility Klebsiella pneumoniae Ampicillin [...] INTERPRETATION Susceptible Escherichia coli Cefdinir INTERPRETATION Susceptible Rola Singh NP LAB MICROBIOLOGY - GENERA L ORDERABLES Final Result [facility] [id number] [address] Department [place] [address] * POCT glucose (06/11/2024 9:28 AM MANAGER FILTER) Pathologist [facility] Glucose Blood, POC 134 mg/dL Blood 06/11/2024 9:28 AM MANAGER FILTER Rola Singh SALES REPRESENTATIVE BUSINESS COURSES POINT OF CARE TEST ORDERA BLES Final Result * (ABNORMAL) eGFR (06/05/2024 9:49 AM MANAGER FILTER) Pathologist [facility] eGFR 57(L) >=60 mL/min/1. 73 m2 Comment: [...] last reviewed 2021. Blood 06/05/2024 9:49 AM MANAGER FILTER 06/05/2024 5:25 PM MANAGER FILTER us Woodrow Engel MD LAB BLOOD ORDERABLES Final Result [facility] [address] [address] Department [place] [address] * Differential, auto (06/05/2024 9:49 AM MANAGER FILTER) Neutrophil abs 4.5 1.5 - 6.5 K/cumm Imm gran abs 0.0 0.0 - 0.1 K/cumm [facility] Lymphocyte abs 1.4 0.8 - 3.3 K/cumm [facility] Monocyte abs 0.5 0.2 - 0.8 K/cumm [facility] Eosinophil abs 0.1 0.0 - 0.5 K/cumm [facility] Basophil abs 0.1 0.0 - 0.1 K/cumm [facility] Neutrophil pct 68.4 % [facility] Comment: Interpretive Data Percent cell count reference ranges are not reported, since discordance with absolute values may lead to misinterpretation of CBC data. Current Interpretive Data was last revised on 2017. Imm gran pct 0.5 % [facility] Comment: Interpretive Data Percent cell count reference ranges are not reported, since discordance with absolute values may lead to misinterpretation of CBC data. Current Interpretive Data was last revised on 2017. Lymphocyte pct 20.9 % [facility] Comment: Interpretive Data Percent cell count reference ranges are not reported, since discordance with absolute values may lead to misinterpretation of CBC data. Current Interpretive Data was last revised on 2017. Monocyte pct 7.9 % [facility] Comment: Interpretive Data Percent cell count reference ranges are not reported, since discordance with absolute values may lead to misinterpretation of CBC data. Current Interpretive Data was last revised on 2017. Eosinophil pct 1.5 % [facility] Comment: Interpretive Data Percent cell count reference ranges are not reported, since discordance with absolute values may lead to misinterpretation of CBC data. Current Interpretive Data was last revised on 2017. Basophil pct 0.8 % [facility] Comment: Interpretive Data Percent cell count reference ranges are not reported, since discordance with absolute values may lead to misinterpretation of CBC data. Current Interpretive Data was last revised on 2017. Blood 06/05/2024 9:49 AM MANAGER FILTER 06/05/2024 5:04 PM MANAGER FILTER us Woodrow Engel MD LAB BLOOD ORDERABLES Final Result [facility] [address] [address] Department [place] [address] * (ABNORMAL) CBC with auto differential (06/05/2024 9:49 AM MANAGER FILTER) WBC 6.6 3.8 - 9.9 K/cumm Hgb 14.0 11.9 - 15.5 g/dL [facility] Hct 45.2 35.6 - 45.5 % [facility] Plt 315 150 - 400 K/cumm [facility] MPV 9.0(L) 9.1 - 12.3 fL [facility] RBC 5.29(H) 3.90 - 5.20 M/cumm [facility] MCV 85.4 81.3 - 96.4 fL [facility] MCH 26.5(L) 27.1 - 33.3 pg [facility] MCHC 31.0(L) 32.3 - 35.7 g/dL [facility] RDW CV 16.2(H) 11.1 - 14.9 % [facility] RDW SD 50.1(H) 35.7 - 48.1 fL [facility] NRBC abs 0.00 0.00 - 0.01 K/cumm [facility] Blood 06/05/2024 9:49 AM MANAGER FILTER 06/05/2024 5:04 PM MANAGER FILTER Woodrow Engel MD LAB BLOOD ORDERABLES Final Result Performing Organization Address [facility] Co de Phone Number [facility] [address] [place] [place] [address] * (ABNORMAL) Hemoglobin A1c (06/05/2024 9:49 AM MANAGER FILTER) Hgb A1C 6.7(H) 4.0 - 5.6 % Estimated Average Glucose 146 mg/dL [facility] Comment: The ADA recommends reporting an estimated Average Glucose (eAG) with all Hemoglobin A1c results using the equation derived from a study of 507 normal and diabetic adults. ??Minority populations were underrepresented and children were not included. ?? (Diabetes Care 31:5797-4423, 2008). ??The eAG is not equivalent to a fasting glucose. Blood 06/05/2024 9:49 AM MANAGER FILTER 06/05/2024 5:04 PM MANAGER FILTER Woodrow Engel MD LAB BLOOD ORDERABLES Final Result [facility] [address] [facility] [place] [address] * (ABNORMAL) Lipid panel (06/05/2024 9:49 AM MANAGER FILTER) Cholesterol 232(H) 30 - 199 mg/dL Comment: [...] on 2018. Triglycerides 90 <=149 mg/dL ALIN KIMBROUGH Comment: Interpretive Data Ages [...] 3 [facility] Blood 06/05/2024 9:49 AM MANAGER FILTER 06/05/2024 5:04 PM MANAGER FILTER us Woodrow Engel MD LAB [place]LOOD [place] [address] [address] Department [place] [address] * Comprehensive metabolic panel (06/05/2024 9:49 AM MANAGER FILTER) Sodium 143 135 - 145 mmol/L Potassium, [...] classification and Diagnosis of Diabetes Diabetes Care 202; 46: S19-S40. Current interpretive data was last [...] CH AST 25 10 - 45 Units/L ALIN KIMBROUGH Blood 06/05/2024 9:49 AM MANAGER FILTER 06/05/2024 5:04 PM MANAGER FILTER us Woodrow Engel MD LAB BLOOD ORDERABLES Final Result Performing Organization Address City/State/ZIP Co al Phone Number [place] [address] [address] [place] [address] * Dexa Axial Skeleton Bone Density 1 [...] - GENERAL ORDERABLES Final Result [facility] K[place]BROUGH [address] [address] [place] [address] * COLONOSCOPY REPORT (09/03/2016) Anatomical Region Laterality Modality Other Narrative 09/03/2016 Ordered by an unspecified provider. Historical Provider GI PROCEDURE ORDERABLES F inal Result from Last 3 Months or Most Recently Relevant to Health [place] [address] [facility] [place] [address] [employer] GOLD Care Teams [employer] Molder Relationship Specialty Start Date End Date Woodrow Engel MD [address] [place] [address] PCP - General Family Medicine 12/02/21 Carlos Howe MD Consulting Physician Cardiology 01/05/18 [place] [address] [facility] [address], [place] [address] Consulting Physician Endocrinology 04/30/21 Ami Horne OD [address] [place] [address] [place] [address] Optometry 04/30/21 Yolette Moran DPM [address] [place] [address] Consulting Physician Foot and Ankle Surg 12/02/21 Ami Horne OD [address] [facility] [place] [address] Optometry 06/03/22 Billie Summers MD [address] [place] [address] [address] Consulting Physician Obstetrics and Gynecology 12/06/22
--- OUTSIDE RECORDS SUMMARY | 2024-08-03 04:03 | XMS_ITS | Continuity of Care Document ---
[facility] Organization [facility] Address [address] [place] [address] Phone Care Team Providers Care Licensed Nurse Practitioner Name Role Phone Frederick FERRER Meng Unavailable Unavailable Allergies, Adverse Reactions, Alerts Substance Reaction Status Criticality NITROFURANTOIN MACROCRYSTALLINE Other Active No Information Medications Medication Instructions Dosage Effective Dates (start - stop) Status Comments One Touch Ultra Test strips take 1 by fingerstick route every day 1 - Active zolpidem ER 12.5 mg tablet,extended release,multiphase take 1 by Oral route every day as needed 1 - Active naproxen 500 mg tablet take 1 by Oral route every day as needed 1 - Active diltiazem CD 240 mg 24 hr Cap take 1 by Oral route every day 1 - Active FEROSUL 50MG TABS 1 QD-daily 1 - Active GLUCOSAMINE CHONDROITIN 750-60 1 QD-daily 1 - Active HYDROCHLOROTHIAZIDE 12.5MG TAB 1 QD-daily 1 - Active MULTIVITAMIN TABS 1 QAM 1 - Active Activella 0.5 mg-0.1 mg tablet take 1 tablet by oral route every day - Active Advance Directives Directive Yes / No Effective Date File Name No Information Encounters Encounter Description Practice Location Reason(s) For Visit Diagnoses Date Provider Providers Copied on Encounter [facility], [address], [place], [place], [address] , [place] tel:[phone] [facility] No Information 4 Frederick Kothari. [address] [place], [place], [address], [place]. tel:[phone] [facility], [address], [place], [place], [address] , [place] tel: [phone] [facility] No Information 4 Frederick Kothari. [address] [place], [place], [address], [place]. [phone] [facility], [address], [place], [place], [address] , [place] tel: [phone] [facility] No Information 4 Frederick Kothari. [address] [place], [place], [address], [place]. [phone] [facility], [address], [place], [place], [address] , [place] tel: [phone] [facility] caImpaired glucose toleranceHyperli pidemiaPalpitati onSleep troubleAllergic rhinitisDJD (degenerative joint disease) of kneeOsteoarthros is, Unspecified, Unspecified SiteRoutine Medical Exam 3 Frederick Kothari. [address] [place], [place], [address], [place]. tel:[phone] Referring Provider: Taye Mack, [address] [place] [address], [address] . tel:[phone] [facility], [address], [place], [place], [address] , [place] tel: [phone] [facility] ALLERGIC RHINITIS NOSDMII WO CMP UNCNTRLDHYPERLIP IDEMIA NEC/NOSInsomnia, unspecifiedOSTEO ARTHROS NOS-UNSPECPalpit ationsH. pylori infectionRoutine general medical examination at a health ca [address] No [address] [facility], [address], [place], [place], [address] , [place] tel: [phone] [facility] Allergic rhinitis, cause unspecifiedInsom julee, unspecifiedOsteo arthrosis, Unspecified, Unspecified SitePalpitations 1 No Information [facility], [address], [place], [place], [address] , [place] tel: [phone] [facility] Insomnia, unspecifiedPalpi tations 1 No Information [facility], [address], [place], [place], [address] , tel: [phone] Con[facility] Department No Information 1 Conversion Doctor. [facility] [place], [address], . [facility], [address], [place], [place], [address] , [place] tel: [phone] [facility] HYPERLIPIDEMIA NEC/NOSPALPITATI ONS [address] , [place], [place], [address], [place]. tel:[phone] [facility], [address], [place], [place], [address] , [place] tel: [phone] [facility] ABN BLOOD CHEMISTRY NECLONG-TERM USE MEDS NEC 9 No Information [facility], [address], [place], [place], [address] , [place] tel: [phone] [facility] INSOMNIA NOS 9 Conversion Doctor. [facility] [place], [address], [place]. [facility], [address], [place], [place], [address] , [place] tel: [phone] [facility] LUMBAGODMII WO CMP UNCNTRLD 8 No Information [facility], [address], [place], [place], [address] , [place] tel: [phone] [facility] ASYMPT POSTMENO STATUSDMII WO CMP NT ST UNCNTR 7 No Information [facility], [address], [place], [place], [address] , [place] tel: [phone] [facility] LOC PRIM OSTEOART-L/LEGCH EST PAIN NOS 6 No Information [facility], [address], [place], [place], [address] , [place] tel: [phone] [facility] OSTEOARTHROS NOS-UNSPECURIN TRACT INFECTION NOSALLERGIC RHINITIS NOSSHORTNESS OF BREATHOTHER GENERAL SYMPTOMS 0 9-200 6 No Information [facility], [address], [place], [place], [address] , tel: [phone] [facility] LOCAL SUPRFICIAL SWELLNG Sep-0 7-200 1 [address], [place], [place], [address], [place]. tel:[phone] [facility], [address], [place], [place], [address] , tel: [phone] [facility] BACKACHE NOS November- 2-200 1 [address], [place], [place], [address], [place]. tel:[phone] [facility], [address], [place], [place], [address] , tel: [phone] [facility] ABDMNAL PAIN UNSPCF SITEDIGESTVE SYST SYMPTM NECSCREEN MAL NEOP-RECTUM Oct- 2-200 1 [address], [place], [place], [address], [place]. [phone] Family History Family Member Type Diagnosis Age At Onset Father Problem (finding) cancer of colon Immunizations Vaccine Date Status Comments Influenza, seasonal, injectable (3 yrs or older) administered Note: walmar t ; Source: Source Unspecified Pneumo (2 yrs or older) (PPV23) administered Source: New Immuniza tion Record Payers Payer name Insurance type Covered republican ID Authoriza tion(s) [employer] [id number] Social History Type Description Quantity Date Captured Comments Alcohol Use Details Unknown Caffeine Use Details Unknown Tobacco Use Status No Information Smoking Status No Information Sex Female Chief Complaint And Reason For Visit No Information Reason For Referral Reason For Referral No Information History Of Present Illness Encounter Date Complaint History Of Prese nt Illness No Information Functional Status Date Functional Assessmen t No Information Instructions Date Instruction Additional Infor mation No Information Assessments Type Assessment Date No Information Patient Care Teams Name Effective Dates (start - stop) Status Members No Information
--- OUTSIDE RECORDS SUMMARY | 2024-08-03 04:03 | XMS_ITS | Encounter Summary ---
Author Organization [facility] Address [address] [place] [address] Care Team Providers Care Wire Bound Box Machine Operator Name Role Phone Vitor Avina MD Primary Care Provider + [phone] Sally Mayer [employer] PRESS TENDER Primary Care Provider + [phone] Sally Mayer [employer]OTE[employer] PRESS TENDER Primary Care Provider + [phone] Gurwinder Pardo [employer] PRESS TENDER Primary Care Provi liz Carlos Howe MD Unavailable [phone] Srinivas Marsh DPM, Gabriel Unavailable + [phone] Ludy Calvillo MD Unavailable [phone] Rufina Castro MD Unavailable [phone] Cari Chan [employer] PRESS TENDER Primary Care Provider [phone] Priscilla Moran MD Unavailable [phone] Ami Horne OD Unavailable [phone] Woodrow Engel MD Primary Care Provider [phone] Yolette MoranM Unavailable [phone] Ami Horne OD Unavailable [phone] Billie Summers MD Unavailable [phone] Encounter Details Date Type Department Care Team (Late st Contact Info) Description 08/17/2016 Orders Only [facility] Provider, MD Jocelyn [facility] [address] [place] [id number] Social History Tobacco Use Types Packs/Day Years Used Date Smoking Tobacco: Never Alcohol Use Standard Drinks/Week Comments No 0 (1 standard drink = 0.6 oz pur e alcohol) Comments Unknown Sex and Gender Information Value Date Recorded Sex Assigned at Not on file Legal 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 Historical Provider [facility] Final Result documented in this encounter Visit Diagnoses Not on filedocumented in this encounter Care Teams Wire Bound Box Machine Operator Relationship Specialty Start Date End Date Vitor Avina MD [address] [place] [address] PCP - General 08/16/16 09/02/16 Sally Mayer PYROTECHNICS PRESS TENDER [address] [address] PCP - General 10/01/16 12/01/17 [place] [address] [address] PCP - General 09/03/16 09/30/16 [place] [address] [address] PCP - General Family Practice 12/02/17 01/04/18 Cari Chan NP [address] [address] PCP - General Family Medicine 03/13/21 12/01/21 Woodrow Engel MD [address] [place] [address] PCP - General Family Medicine 12/02/21 [place] [address] [address] Consulting Physician Cardiology 01/05/18 Juarez Espino Jr., RAHEL [address] [address] Referring Physician 01/05/18 12/01/21 [place] [address] [address] Referring Physician Internal Medicine 01/05/18 1 Rufina Castro MD [address] [address] Referring Physician Obstetrics and Gynecology 01/05/18 12/05/22 [place] [address] [address] Consulting Physician Endocrinology 04/30/21 Ami Horne OD [address] [place] [address] Optometry 04/30/21 Yolette Moran DPM [address] [place] [address] Consulting Physician Foot and Ankle Surg 12/02/21 Ami Horne OD [address] [place] [address] Optometry 06/03/22 Billie Summers MD [address] [place] [address] [address] [place] [address] Consulting Physician Obstetrics and Gynecology 12/06/22 documented as of this encounter
[2024-08-03 04:16] VITALS: BP 142/65; PULSE 76; RESP 16; TEMP 37; O2SAT 96
[2024-08-03 08:24] VITALS: BP 157/73; PULSE 83; RESP 20; TEMP 36.8; O2SAT 97
--- NOTE | 2024-08-03 09:25 | ED.FALL ---
HPI - Fall General Chief Complaint: Fall Stated Complaint: glf Time Seen by Provider: 08/03/24 09:09 Source: patient Mode of arrival: ambulatory Limitations: no limitations History of Present Illness HPI Narrative: This is a 79-year-old female that presents to the emergency department after a ground level fall last night with head injury. Reports she got up in the middle of the night to use the bathroom. Unsure what caused her to fall. She fell forward. She hit her head on the ground. She did not lose consciousness. She is not on anticoagulation. Reports nasal pain. She also sustained a laceration to her lip. Unsure of last tetanus vaccination. She also reports some right-sided rib pain. She has been ambulatory since the fall. Denies vision changes, vomiting, focal numbness or weakness. Related Data Home Medications ?Medication ?Instructions ?Recorded ?Confirmed ?Last Taken ?Type astaxanthin 4 mg capsule mg PO 06/05/19 Unknown History calcium 600 mg (as carbonate)-vit 1 tablet PO DAILY 06/05/19 Unknown History D3 20 mcg (800 unit) chewable tablet (Caltrate plus D) diltiazem HCl 360 mg capsule,24 360 mg PO DAILY 06/05/19 Unknown History hr,extended release glipizide 2.5 mg tablet, extended 2.5 mg PO DAILY 06/05/19 Unknown History release 24 hr ibuprofen 600 mg tablet 600 mg PO Q6H PRN 06/05/19 Unknown History magnesium oxide 400 mg (241.3 mg 400 mg PO DAILY 06/05/19 Unknown History magnesium) tablet multivitamin (Daily Multi-Vitamin 1 tablet PO DAILY 06/05/19 Unknown History tablet) vitamins A,C,A-uawk-cvzudl 4,296 1 cap PO BID 06/05/19 Unknown History mcg-226 mg-90 mg capsule (PreserVision AREDS) zolpidem 5 mg tablet 5 mg PO ONCE 06/05/19 Unknown History losartan 50 mg tablet 50 mg PO DAILY 06/10/21 Unknown History Allergies Allergy/AdvReac Type Severity Reaction Status Date / Time nitrofurantoin Allergy Unknown Unknown Verified 08/03/24 08:23 Sulfa (Sulfonamide Allergy Unknown Unknown Verified 08/03/24 08:23 Antibiotics) Review of Systems Review of Systems: CONSTITUTIONAL: Denies fever EYES: Denies visual changes GASTROINTESTINAL: Denies vomiting MUSCULOSKELETAL: Reports joint pain, and myalgia. NEUROLOGIC: Denies numbness, or weakness. All systems reviewed & are unremarkable except as noted in HPI and below PMFSH Past Medical History Medical History (Updated 08/03/24 @ 11:35 by Suzanne Begum PA-C) Acid reflux Diabetes Hypertension Surgical History Surgical History H/O tubal ligation H/O breast biopsy H/O total hysterectomy with removal of both tubes and ovaries H/O dilation and curettage H/O rotator cuff surgery Family History Family History Mother Patient's mother is in good health Father Patient's father is in good health Grandparent Diabetes mellitus Hypertension Carcinoma of colon Sibling Family history of hypercholesterolemia Other Family history of congestive heart failure Family history of genitourinary disease Social History Social History Smoking status: Never smoker Second hand tobacco smoke exposure: No Alcohol intake: never Exam Narrative: GENERAL: Well-appearing, well-nourished, and in no acute distress. HEAD: Normocephalic. Mild bruising to the left upper eyelid and left cheek. 1cm flap laceration to the upper lip EYES: PERRLA and EOMI. ENT: Dried blood in the nares. Mucous membranes moist. Oropharynx without tonsillar hypertrophy exudate or other lesions. Bilateral TMs pearly hyatt non-bulging NECK: Supple. No adenopathy or masses. CHEST: Clear to auscultation. No respiratory distress. No wheezes rales or rhonchi HEART: Regular rate and rhythm. No murmur heard. Normal peripheral pulses. BACK: No midline spinal tenderness EXTREMITIES: Normal range of motion. No edema or obvious deformity. Strength equal in bilateral upper and lower extremities (5/5) SKIN: Warm, dry, no rash. NEURO: No focal deficits. Alert and oriented x3. CN II-XII grossly intact PSYCH: Normal mood and affect Course Course Emergency Course: patient updated on workup and agrees with plan of care Vital Signs Vital signs: Vital Signs Temperature 98.6 F 08/03/24 04:16 Pulse Rate 76 08/03/24 04:16 Respiratory Rate 16 08/03/24 04:16 Blood Pressure 142/65 H 08/03/24 04:16 Pulse Oximetry 96 08/03/24 04:16 Temperature 98.2 F 08/03/24 08:24 Pulse Rate 83 08/03/24 08:24 Respiratory Rate 20 08/03/24 08:24 Blood Pressure 157/73 H 08/03/24 08:24 Pulse Oximetry 97 08/03/24 08:24 Procedures Laceration Laceration 1: Date: 08/03/24 Time: 17:47 Site: face Size (cm): 1 Description: flap Depth: simple, single layer Local Anesthetic: lidocaine 1% Amount of anesthesia used (mL): 1 Pre-repair: wound explored and irrigated ====== Skin Level ====== Skin layer closed with: other (fast absorbing gut) Size (cm): 5-0 Number of sutures: 1 Technique: simple, interrupted ====== Subcutaneous Layer ====== ====== Muscle Layer ====== ====== Tendon Layer ====== MDM - Fall MDM Narrative Medical decision making narrative: Patient presents to the ER after a fall today with head injury. She is neurologically intact. Her vitals are stable. CT brain without acute findings. CT cervical spine without acute findings. CT facial bone shows fractures of the left orbital floor and maxillary sinus. Right rib/chest x-rays without acute cardiopulmonary abnormality or rib fracture. Patient was updated on tetanus vaccination. Laceration on the lip sutured. Updated on her workup and agrees with plan of care. She is to follow up with ENT. She was given warnings to return the ER Differential Diagnosis Differential diagnosis: Likely compression fracture, concussion without loss of consciousness and other (rib fracture, contusion, orbital fracture, nasal bone fracture, sinus fracture) Imaging Data Radiologist's impression: ITS Impressions Head CT 08/03/24 05:52 IMPRESSION: 1. No acute intracranial abnormality. 2: Probable fractures of the left orbital floor and maxillary sinus with hemorrhage in the left maxillary sinus. Head/Cervical Spine/Facial Bones CT 08/03/24 05:59 IMPRESSION: 1. Left orbital, maxillary sinus and nasal fractures with hemorrhage in the left maxillary sinus. 2: No acute abnormality of the cervical spine. Severe cervical spondylosis. Ribs w/Chest X-Ray 08/03/24 10:09 IMPRESSION: 1:No acute displaced rib fractures. Critical Care Time Critical Care Time Critical Care Time: No Discharge Plan Discharge Clinical Impression: Fracture of inferior orbital wall Qualifiers: Encounter type: initial encounter Fracture type: closed Laterality: left Qualified Code(s): S02.32XA - Fracture of orbital floor, left side, initial encounter for closed fracture Closed fracture of left maxillary sinus Qualifiers: Encounter type: initial encounter Qualified Code(s): S02.40DA - Maxillary fracture, left side, initial encounter for closed fracture Closed fracture nasal bone Qualifiers: Encounter type: initial encounter Qualified Code(s): S02.2XXA - Fracture of nasal bones, initial encounter for closed fracture Laceration of lip Qualifiers: Encounter type: initial encounter Qualified Code(s): S01.511A - Laceration without foreign body of lip, initial encounter Head injury Qualifiers: Encounter type: initial encounter Qualified Code(s): S09.90XA - Unspecified injury of head, initial encounter Patient Disposition: Home, Self-Care Condition: Stable Instructions: Nasal Fracture (ED), Laceration (ED), Facial Fracture (ED), Head Injury (ED) Additional Instructions: Return to the emergency department if you experience fever, vision changes, chest pain, shortness of breath, abdominal pain with nausea and vomiting, weakness, numbness, or any other symptoms that are concerning to you. Ice to the area. Avoid blowing your nose. Sleep with head of bed elevated. Try to do a soft diet over the next couple of days. [id number]-mtr-[id number] pain medication as needed. Prescribed pain medication as needed. Take oral antibiotic as prescribed Follow up with ENT. Call to make an appointment Patient Language: Montenegrin Prescriptions: New amoxicillin-pot clavulanate 875-125 mg tablet 1 tablet PO Q12H 5 Days Qty: 10 0RF hydrocodone-acetaminophen 5-325 mg tablet 1 tablet PO Q8H PRN (Reason: pain) Qty: 14 0RF No Action diltiazem HCl 360 mg capsule,extended release 24 hr 360 mg PO DAILY glipizide 2.5 mg tablet extended release 24hr 2.5 mg PO DAILY astaxanthin 4 mg capsule PO magnesium oxide 400 mg (241.3 mg magnesium) tablet 400 mg PO DAILY multivitamin [Daily Multi-Vitamin] Tablet 1 tablet PO DAILY Caltrate 600 plus D 600 mg (1,500 mg)-800 unit tablet,chewable 1 tablet PO DAILY PreserVision AREDS 14,320-226-200 pyii-lp-ezhd capsule 1 cap PO BID ibuprofen 600 mg tablet 600 mg PO Q6H PRN zolpidem 5 mg tablet 5 mg PO ONCE estradiol 0.5 mg tablet 0.5 mg PO DAILY Qty: 90 3RF losartan 50 mg tablet 50 mg PO DAILY Follow-up/Referrals: Toro,Woodrow Rosado MD [Primary Care Provider] -
--- OUTSIDE RECORDS SUMMARY | 2024-08-03 10:00 | XMS_ITS | Encounter Summary ---
Author Organization [facility] Address [address] [place] [address] Care Team Providers Care Demolitionist Name Role Phone Vitor Avina MD Primary Care Provider + [phone] Sally Mayer SURVEY RESEARCH CENTER DIRECTOR Primary Care Provider + [phone] Sally Mayer SURVEY RESEARCH CENTER DIRECTOR Primary Care Provider + [phone] Sally Mayer SURVEY RESEARCH CENTER DIRECTOR Primary Care Provider + [phone] Gurwinder Pardo SURVEY RESEARCH CENTER DIRECTOR Primary Care Provi liz Carlos Howe MD Unavailable +[phone] Srinivas Marsh DPM, Gabriel Unavailable + [phone] Ludy Calvillo MD Unavailable +[phone] Rufina Castro MD Unavailable +[phone] Cari Chan SURVEY RESEARCH CENTER DIRECTOR Primary Care Provider +[phone] Priscilla Moran MD Unavailable +[phone] Ami Horne OD Unavailable +[phone] Woodrow Engel MD Primary Care Provider +[phone] Yolette Moran DPM Unavailable +[phone] Ami Horne OD Unavailable +[phone] Billie Summers MD Unavailable [phone] Encounter Details Date Type Department Care Team (Late st Contact Info) Description 07/22/2016 Orders Only [facility] ProviderJocelyn MD [address] [place] [address] Social History Tobacco Use Types Packs/Day Years Used Date Smoking Tobacco: Never Alcohol Use Standard Drinks/Week Comments No 0 (1 standard drink = 0.6 oz pur e alcohol) Comments Unknown Sex and Gender Information Value Date Recorded Sex Assigned at Not on file 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 Gender Identity Female 04/08/2020 10:03 AM CDT Sexual Orientation Straight 07/09/2019 11 :55 AM MATERIAL HANDLER LOADER documented as of this encounter Plan of [...] on filedocumented in this encounter Care Teams Demolitionist Relationship Specialty Start Date End Date Vitor Avina MD [address] [place] [address] PCP - General 08/16/16 09/02/16 Sally Mayer SURVEY RESEARCH CENTER DIRECTOR [address] [address] PCP - General 10/01/16 12/01/17 Sally Mayer, SURVEY RESEARCH CENTER DIRECTOR [address] [address] PCP - General 09/03/16 09/30/16 aSlly Mayer SURVEY RESEARCH CENTER DIRECTOR [address] [address] PCP - General 05/22/15 08/15/16 [place] [address] [address] PCP - General Family Practice 12/02/17 01/04/18 Cari Chan NP [address] [address] PCP - General Family Medicine 03/13/21 12/01/21 Woodrow Engel MD [address] [place] [address] PCP - General Family Medicine 12/02/21 [place] [address] [address] Consulting Physician Cardiology 01/05/18 Juarez Espino Jr., DPM [address] [address] Referring Physician 01/05/18 12/01/21 [place] [address] [address] Referring Physician Internal Medicine 01/05/18 Rufina Alcantara MD [address] [facility] [address] [place] [address] Referring Physician Obstetrics and Gynecology 01/05/18 12/05/22 [place] [address] [facility] [address] [place] [address] Consulting Physician Endocrinology 04/30/21 Ami Horne, OD [address] [facility] [place] [address] Optometry 04/30/21 Yolette Moran DPM [address] [place] [address] [id number] Consulting Physician Foot and Ankle Surg 12/02/21 Ami Horne, SHAILESH [address] [facility] [place] [address] Optometry 06/03/22 Billie Summers MD [address] [place] [address] DR [address] [place] [address] Consulting Physician Obstetrics and Gynecology 12/06/22 documented as of this encounter
--- OUTSIDE RECORDS SUMMARY | 2024-08-03 10:00 | XMS_ITS | Encounter Summary ---
Author Organization [facility] Medical [facility] Address [address] [place] [address] Care Team Providers Care Distributed Generation Project Manager Name Role Phone Vitor Avina MD Primary Care Provider + [phone] Sally Mayer WELDER HELPER Primary Care Provider + [phone] Sally Mayer WELDER HELPER Primary Care Provider + [phone] Gurwinder Pardo WELDER HELPER Primary Care Provi liz Carlos Howe MD Unavailable +[phone] Srinivas Marsh DPM, Gabriel Unavailable + [phone] Ludy Calvillo MD Unavailable +[phone] Rufina Castro MD Unavailable +[phone] Cari Chan WELDER HELPER Primary Care Provider [phone] Priscilla Moran MD Unavailable +[phone] Ami Horne OD Unavailable +[phone] Woodrow Engel MD Primary Care Provider +[phone] Yolette MoranM Unavailable +[phone] Ami Horne OD Unavailable +[phone] Billie Summers MD Unavailable +[phone] Encounter Details Date Type Department Care Team (Late st Contact Info) Description 08/17/2016 Orders Only [facility] Provider, MD Jocelyn [facility] [address] [place] [id number] Social History Tobacco Use Types Packs/Day Years Used Date Smoking Tobacco: Never Alcohol Use Standard Drinks/Week Comments No 0 (1 standard drink = 0.6 oz pur e alcohol) Comments Unknown Sex and Gender Information Value Date Recorded Sex Assigned at Not on file 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 Gender Identity Female 04/08/2020 10:03 AM CDT Sexual Orientation Straight 07/09/2019 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 documented as of this encounter Plan of [...] on filedocumented in this encounter Care Teams Distributed Generation Project Manager Relationship Specialty Start Date End Date Vitor Avina MD [address] [place] [address] PCP - General 08/16/16 09/02/16 Sally Mayer WELDER HELPER [address] [address] PCP - General 10/01/16 12/01/17 [place] [address] [address] PCP - General 09/03/16 09/30/16 [place] [address] [address] PCP - General Family Practice 12/02/17 01/04/18 Cari Chan NP [address] [address] PCP - General Family Medicine 03/13/21 12/01/21 Woodrow Engel MD [address] [place] [address] PCP - General Family Medicine 12/02/21 [place] [address] [address] Consulting Physician Cardiology 01/05/18 Juarez Espino Jr., RAHEL [address] [address] Referring Physician 01/05/18 12/01/21 [place] [address] [address] Referring Physician Internal Medicine 01/05/18 1 Rufina Castro MD [address] [address] Referring Physician Obstetrics and Gynecology 01/05/18 12/05/22 [place] [address] [address] Consulting Physician Endocrinology 04/30/21 Ami Horne OD [address] [place] [address] Optometry 04/30/21 Yolette Moran DPM [address] [place] [address] Consulting Physician Foot and Ankle Surg 12/02/21 Ami Horne OD [address] [place] [address] Optometry 06/03/22 Billie Summers MD [address] [place] [address] DR [address] [place] [address] Consulting Physician Obstetrics and Gynecology 12/06/22 documented as of this encounter
--- OUTSIDE RECORDS SUMMARY | 2024-08-03 10:02 | XMS_ITS | Referral Summary ---
Author Organization [facility] Address [address] [place] [address] Care Team Providers Care Nutritional Health Coach Name Role Phone Carlos Howe MD Unavailable Priscilla Moran MD Unavailable [phone] Ami Horne OD Unavailable Woodrow Engel MD Primary Care Provider Yolette MoranM Unavailable [phone] Ami Horne OD Unavailable [phone] Billie Summers MD Unavailable [phone] Encounters Date Type Department Care Team Description 07/23/2024 11:15 AM SPIRAL WINDING MACHINE HELPER - 07/23/2024 11:59 PM SPIRAL WINDING MACHINE HELPER Hospital Encounter [facility] Imaging and Radiology [address] [place] [phone] Screening mammogram, encounter for Discharge Disposition: Discharge to home or self care 06/19/2024 11:15 AM SPIRAL WINDING MACHINE HELPER Office Visit [facility] Primary Care at [address] [phone] Woodrow Engel MD Medicare annual wellness visit, subsequent (Primary Dx); Microalbuminuria due to type 2 diabetes mellitus (CMS/HCC) (HCC); Hypertension associated with type 2 diabetes mellitus (HCC); Diastolic dysfunction without heart failure; Paroxysmal supraventricular tachycardia (CMS/HCC); Gastroesophageal reflux disease without esophagitis; Stage 3a chronic kidney disease (HCC) 06/15/2024 Telephone [facility] Diabetes and Endocrinology [address] [place] [phone] Rola Singh NP Test Results (Labs) 06/14/2024 Orders Only [facility] Diabetes and Endocrinology [address] [place] [phone] Rola Singh, TREY Acute cystitis without hematuria (Primary Dx) 06/11/2024 10:04 AM SPIRAL WINDING MACHINE HELPER - 06/11/2024 11:59 PM SPIRAL WINDING MACHINE HELPER Hospital Encounter [address] [phone] Type 2 diabetes mellitus with hyperglycemia, without long-term current use of insulin (HCC); Cloudy urine; Foul smelling urine Discharge Disposition: Discharge to home or self care 06/11/2024 10:00 AM SPIRAL WINDING MACHINE HELPER Lab [facility] Outpatient Lab at [address] [phone] 06/11/2024 Telephone [facility] Diabetes and Endocrinology [address] [place] [phone] Rola Singh NP samples of Ozempic 06/11/2024 9:30 AM SPIRAL WINDING MACHINE HELPER Office Visit [facility] Diabetes and Endocrinology [address] [place] [phone] Rola Singh, TREY Type 2 diabetes mellitus with hyperglycemia, without long-term current use of insulin (HCC) (Primary Dx); Hypertension associated with type 2 diabetes mellitus (HCC); Cloudy urine; Foul smelling urine 06/05/2024 9:49 AM SPIRAL WINDING MACHINE HELPER - 06/05/2024 11:59 PM SPIRAL WINDING MACHINE HELPER Hospital Encounter [address] [phone] Hypertension associated with type 2 diabetes mellitus (HCC) Discharge Disposition: Discharge to home or self care 06/05/2024 9:45 AM SPIRAL WINDING MACHINE HELPER Lab [facility] Outpatient Lab at [address] [phone] Hypertension associated with type 2 diabetes mellitus (HCC) (Primary Dx) from Last 3 Months Allergies Active Allergy Reactions Criticality Noted Date Comments Nitrofurantoin Macrocrystalline Rash Medium 03/2006 Sulfa (Sulfonamide Antibiotics) Hives,Itching Medium Medications multivitamin tablet tablet take 1 tablet by oral route every day with food 0 01/04/20 12 Active calcium citrate-vitamin D3 (CALCIUM CITRATE + D) 315-200 mg-unit per tablet take 1 by Oral route every day 0 01/04/20 12 Active vit C/vit E ac/lut/copper/z inc (PRESERVISION LUTEIN ORAL) Take 1 tablet by mouth daily 11/02/19 19 Active ibuprofen (ADVIL,MOTRIN) 600 mg tabletIndicatio ns:Anti-inflamm atory Take 1 tablet (600 mg total) by mouth every 8 (eight) hours as needed for pain 270 tablet 08/04/19 23 Active cartilage/colla gen/bor/hyalur (MOVE FREE ULTRA TRIPLE ACTION ORAL) 09/21/19 17 Active psyllium 0.52 gram capsule 07/28/19 23 Active OneTouch Delica Plus Lancet 33 gauge misc ONE TOUCH DELICA PLUS 33 G CHECK BLOOD SUGAR DAILY 08/12/19 24 Active blood glucose diagnostic stripIndication s:Type 2 diabetes mellitus with hyperglycemia, without long-term current use of insulin ([facility]) One Touch Ultra Lite Test Strips Use to test blood sugar once daily. (Non insulin dependent E11.65) 100 strip 6 08/25/19 24 Active glipiZIDE (GLUCOTROL) 10 mg tabletIndicatio ns:Type 2 diabetes mellitus with hyperglycemia, without long-term current use of insulin ([facility]) Take 1 tablet (10 mg total) by mouth 2 (two) times a day before breakfast and dinner 180 tablet 3 08/25/19 24 025 Active zolpidem (AMBIEN) 5 mg tablet Take 1 tablet (5 mg total) by mouth daily as needed for sleep 30 tablet 1 12/19/19 24 Active clotrimazole-be tamethasone (LOTRISONE) cream Apply topically 2 (two) times a day 45 g 1 12/19/19 24 Active famotidine (PEPCID) 40 mg tabletIndicatio ns:Gastroesopha geal reflux disease without esophagitis TAKE 1 TABLET BY MOUTH EVERY DAY 90 tablet 1 02/28/20 24 Active bimatoprost (LATISSE) 0.03 % ophthalmic solution APPLY 1 DROP VIA APPLICATOR EVERY NIGHT AT BEDTIME 03/19/20 24 Active losartan (COZAAR) 50 mg tabletIndicatio ns:Hypertension associated with type 2 diabetes mellitus (HCC) TAKE 1 TABLET BY MOUTH DAILY 90 tablet 3 05/24/20 24 Active diltiaZEM CD (CARDIZEM CD) 360 mg 24 hr capsule TAKE 1 CAPSULE BY MOUTH DAILY 90 capsule 05/24/20 24 Active semaglutide (Ozempic) 0.25 mg or 0.5 mg (2 mg/3 mL) pen injector injectionIndica tions:Type 2 diabetes mellitus with hyperglycemia, without long-term current use of insulin (HCC) Inject 0.25 mg under the skin once a week 2 mL 3 06/11/20 24 025 Active Farxiga 10 mg tabletIndicatio ns:Type 2 diabetes mellitus with hyperglycemia, without long-term current use of insulin (HCC) TAKE 1 TABLET BY MOUTH EVERY DAY 90 tablet 2 08/03/19 25 Active dapagliflozin propanediol (Farxiga) 10 mg tabletIndicatio ns:Type 2 diabetes mellitus with hyperglycemia, without long-term current use of insulin (HCC) TAKE 1 TABLET BY MOUTH EVERY DAY 90 tablet 2 10/27/19 24 025 Discontinued Active Problems Problem Noted Date Diagnosed Date CKD (chronic kidney disease) stage 3, GFR 30-59 ml/min 12/19/2023 Medicare annual wellness visit, subsequent 06/13 Assessment & Plan (06/19/2024 11:32 AM SPIRAL WINDING MACHINE HELPER): A(n) yearly Medicare Annual Wellness Visit has [...] months Assessment & Plan (06/13/2023 10:46 AM SPIRAL WINDING MACHINE HELPER): A(n) yearly Medicare Annual Wellness Visit has [...] indicated Assessment & Plan (09/05/2023 11:05 AM SPIRAL WINDING MACHINE HELPER): Complete exam done. The patient was seen and examined with Dr. Alvarez, PGY1 Assessment & Plan (08/30/2022 9:56 AM SPIRAL WINDING MACHINE HELPER): Complete exam done. Hormone replacement therapy (HRT) 08/30/2022 Assessment & Plan (09/05/2023 4:56 PM SPIRAL WINDING MACHINE HELPER): She is not happy about having HF and night sweats Options discussed. She is wanting to go back on HRT after reviewing that the current recommendation is to stop after 60 as it is hard on the heart and may increase her risk of CT Currently her DM is under control She [...] mg qhs cardiac work up with her garage manager was negative. Administrative encounter 06/03/2022 Assessment & Plan (06/03/2022 1:31 PM SPIRAL WINDING MACHINE HELPER): A(n) yearly Essence Enhanced Encounter has been performed today. Kathy Hill is up to date on screening tests. She is in need of None- no screening indicated at this time- eye exam performed this year at [facility]. She is up to date on needed preventative vaccinations Labs as ordered Referrals also ordered as requested BP is controlled Continuing current regimen Microalbuminuria due to type 2 diabetes mellitus ([facility]) 04/16/2020 Assessment & Plan (06/11/2024 9:20 AM SPIRAL WINDING MACHINE HELPER): Resolved. On PAOLA-I / ARB: Losartan 50mg. Last MA: 01/24/23 (16). Assessment & Plan (08/25/2023 11:29 AM SPIRAL WINDING MACHINE HELPER): Resolved. On PAOLA-I / ARB: Losartan 50mg. Last MA: 01/24/23 (16). Assessment & Plan (05/16/2023 10:55 AM SPIRAL WINDING MACHINE HELPER): Chronic problem; improved. On PAOLA-I / ARB: Losartan 50mg. Last MA: 01/24/23 (16). Assessment & Plan (01/24/2023 10:51 AM CDT): Chronic problem. On PAOLA-I / ARB: Losartan 50mg. Last MA: 12/02/21 (45). Will update MA/Cr today. Verified that she uses [facility]. Aware to check results/results letter in [employer]. Will contact by phone if needed. Assessment & Plan (07/12/2022 10:36 AM SPIRAL WINDING MACHINE HELPER): Pt on losartan BP and DM well controlled Assessment & Plan (01/11/2022 9:59 AM CDT): Pt on losartan BP and DM well controlled Assessment & Plan (05/02/2021 1:10 PM CDT): Continue Arb. Last microalbumin 04/08/2021 normal Assessment & Plan (01/12/2021 1:33 PM CDT): Pt on losartan BP and DM well controlled Assessment & Plan (07/28/2020 1:22 PM SPIRAL WINDING MACHINE HELPER): Pt on losartan BP and DM well controlled Diabetes mellitus 01/05/2018 Assessment & Plan (06/11/2024 9:20 AM SPIRAL WINDING MACHINE HELPER): Chronic problem. A1c stable at 6.7%. no changes at this time. Again discussed decreasing glipizide to 5mg bid if BG start to lower consistently. Current medications: Glipizide 10mg twice daily before breakfast & dinner Farxiga 10mg daily Ozempic 0.25mg weekly UTD on DM eye exam (09/13/23). Will update MA/Cr today. Verified that she uses [facility]. Aware to check results/results letter in [employer]. Will contact by phone if needed. Strive [...] update MA/Cr today. Verified that she uses [employer]. Aware to check results/results letter in [employer]. Will contact by phone if needed. Strive [...] infection. Assessment & Plan (08/25/2023 11:31 AM SPIRAL WINDING MACHINE HELPER): Chronic problem. A1c improved from 8.5% 05/16/23 [...] infection. Assessment & Plan (05/16/2023 11:30 AM SPIRAL WINDING MACHINE HELPER): Chronic problem. A1c increasing steadily throughout this [...] to 5mg bid. To send me a [facility] in 1-2 weeks with BS readings. UTD on DM eye exam. Will update MA/Cr today. Verified that she uses [facility]. Aware to check results/results letter in [employer]. Will contact by phone if needed. Strive [...] infection. Assessment & Plan (07/12/2022 10:36 AM SPIRAL WINDING MACHINE HELPER): Chronic, overall fairly controlled A1c - 7.1 [...] months Assessment & Plan (07/28/2020 1:23 PM SPIRAL WINDING MACHINE HELPER): Chronic, Improving control A1c - 6.2 % [...] months Assessment & Plan (07/18/2019 9:07 AM SPIRAL WINDING MACHINE HELPER): Chronic, Fair controlled A1c - 6.7 % Advise to increase Glipizide XL to 5 Mg oral daily with dinner Advise pt to check BS 2-3 x weekly Check A1c in 3 months Keep up annual dilated eye exam Daily foot care Follow up in 6 months Hypertension associated with type 2 diabetes elissa kulkarni 01/05/2018 Assessment & Plan (06/24/2024 10:00 PM SPIRAL WINDING MACHINE HELPER): Blood Pressure Follow-up: Lifestyle modifications education provided on sodium reduction, increase physical activity, reduce alcohol consumption, and weight reduction. A1c stable at 6.7% Continuing diltiazem CD, losartan, glipizide, Farxiga Assessment & Plan (06/11/2024 9:20 AM SPIRAL WINDING MACHINE HELPER): Chronic problem. Controlled on current Losartan 50mg daily, diltiazem CD 360mg daily. No changes at this time. Assessment & Plan (12/26/2023 2:10 PM CDT): Chronic problem. Controlled on current Losartan 50mg daily, diltiazem CD 360mg daily. No changes at this time. Assessment & Plan (08/25/2023 11:31 AM SPIRAL WINDING MACHINE HELPER): Chronic problem. Controlled on current Losartan 50mg daily, diltiazem CD 360mg daily. No changes at this time. Assessment & Plan (05/16/2023 10:50 AM SPIRAL WINDING MACHINE HELPER): Chronic problem. Controlled on current Losartan 50mg [...] glipizide Assessment & Plan (07/12/2022 10:35 AM SPIRAL WINDING MACHINE HELPER): Chronic, well controlled, continue Losartan Assessment & [...] regimen Assessment & Plan (07/28/2020 1:22 PM SPIRAL WINDING MACHINE HELPER): Chronic, well controlled, continue current medication regimen Assessment & Plan (01/14/2020 1:35 PM CDT): Chronic, well controlled, continue current medication regimen Assessment & Plan (07/18/2019 9:08 AM SPIRAL WINDING MACHINE HELPER): Chronic, well controlled, continue current medication regimen Hypokalemia 01/05/2018 Diastolic dysfunction without heart failure 04/03 Paroxysmal supraventricular tachycardia 07/22/19 17 Overview (10/08/2016): PSVT (paroxysmal supraventricular tachycardia) Assessment & Plan (05/02/2021 1:09 PM CDT): Well controlled on diltiazem 360 mg once daily. Continue regular follow-up with Cardiology. Assessment & Plan (06/15/2017 8:27 PM SPIRAL WINDING MACHINE HELPER): Controlled at this time. Following with garage manager. Trochanteric bursitis 05/22/2015 Overview (10/08/2016): Trochanteric bursitis of right hip Palpitations 01/14/2014 Insomnia 01/14/2014 Assessment & Plan (06/15/2017 8:33 PM SPIRAL WINDING MACHINE HELPER): Plan to start Ambien 5 mg at HS prn. Primary osteoarthritis of knee 12/29/2005 Other chest pain 12/10/2005 Allergic rhinitis 05/26/2004 Resolved Problems Problem Noted Date Diagnosed Date Resolved Date [facility]/04/2021 01/24/2023 Assessment [...] 04/04/2018 Assessment & Plan (06/15/2017 8:29 PM SPIRAL WINDING MACHINE HELPER): Diabetes is well controlled. 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 Not on file Not on file Last Filed Vital Signs Vital Sign Reading Time Taken Comments Blood Pressure 144/80 06/19/2024 11:27 AM SPIRAL WINDING MACHINE HELPER Pulse 71 06/19/2024 11:27 AM SPIRAL WINDING MACHINE HELPER Temperature 35.9 ??C (96.7 ??F) 06/19/2024 11:[address] Respiratory Rate 16 06/19/2024 11:27 AM SPIRAL WINDING MACHINE HELPER Oxygen Saturation 96% 06/19/2024 11:27 AM SPIRAL WINDING MACHINE HELPER Inhaled Oxygen Concentration - - Weight 59 kg (130 lb) 06/19/2024 11:27 AM SPIRAL WINDING MACHINE HELPER Height 163.2 cm (5' 4.25 ) 06/19/2024 11:[address] Body Mass Index 22.14 06/19/2024 11:27 AM SPIRAL WINDING MACHINE HELPER Plan of Treatment Not on file Procedures Procedure Name Priority Date/Time Associated Diagnosis Comments SCREENING MAMMOGRAM BILATERAL W TAY Schedule Routine, Read Routine (OP Routine) 07/23/2024 11:36 AM SPIRAL WINDING MACHINE HELPER Screening mammogram, encounter for URINALYSIS, MICROSCOPIC ONLY Routine 06/11/2024 10:04 AM SPIRAL WINDING MACHINE HELPER Cloudy urine Foul smelling urine ALBUMIN CREATININE RATIO, URINE Routine 06/11/2024 10:04 AM SPIRAL WINDING MACHINE HELPER Type 2 diabetes mellitus with hyperglycemia, without long-term current use of insulin (HCC) URINE CULTURE Routine 06/11/2024 10:04 AM SPIRAL WINDING MACHINE HELPER URINALYSIS AND REFLEX TO MICROSCOPIC AND CULTURE Routine 06/11/2024 10:04 AM SPIRAL WINDING MACHINE HELPER Cloudy urine Foul smelling urine POCT GLUCOSE Routine 06/11/2024 9:28 AM SPIRAL WINDING MACHINE HELPER Type 2 diabetes mellitus with hyperglycemia, without long-term current use of insulin (HCC) EGFR Routine 06/05/2024 9:49 AM SPIRAL WINDING MACHINE HELPER Hypertension associated with type 2 diabetes mellitus (HCC) DIFFERENTIAL AUTO Routine 06/05/2024 9:4 9 AM SPIRAL WINDING MACHINE HELPER Hypertension associated with type 2 diabetes mellitus (HCC) HEMOGLOBIN A1C Routine 06/05/2024 9:49 AM SPIRAL WINDING MACHINE HELPER Hypertension associated with type 2 diabetes mellitus (HCC) LIPID PANEL Routine 06/05/2024 9:49 AM SPIRAL WINDING MACHINE HELPER Hypertension associated with type 2 diabetes mellitus (HCC) COMPREHENSIVE METABOLIC PANEL Routine 06/05/2024 9:49 AM SPIRAL WINDING MACHINE HELPER Hypertension associated with type 2 diabetes mellitus (HCC) CBC WITH AUTO DIFFERENTIAL Routine 06/05/2024 9:49 AM SPIRAL WINDING MACHINE HELPER Hypertension associated with type 2 diabetes mellitus [...] Mammogram Bilateral W Tay (07/23/2024 11:36 AM SPIRAL WINDING MACHINE HELPER) Anatomical Region Laterality Modality Breast Bilateral Mammography 07/23/2024 2:37 PM SPIRAL WINDING MACHINE HELPER Impressions 07/23/2024 2:37 PM SPIRAL WINDING MACHINE HELPER No evidence of malignancy in either breast. FINAL ASSESSMENT: BI-RADS Category 1: Negative. RECOMMENDATION: Recommend return for annual screening mammogram in 12 months. ?? Electronically signed by: Stacey Montelongo MD Narrative 07/23/2024 2:37 PM SPIRAL WINDING MACHINE HELPER EXAMINATION: BILATERAL SCREENING MAMMOGRAM COMPARISON: Mammography 07/21/2023, [...] microscopic and culture Urine (06/11/2024 10:04 AM SPIRAL WINDING MACHINE HELPER) Color, ur Yellow Yellow Clarity, ur Turbid(A) [...] tendency for uric acid stone formation. Source: [facility] Current Interpretive Data was last revised on [...] performed. CERNER Urine 06/11/2024 10:0 4 AM SPIRAL WINDING MACHINE HELPER 06/11/2024 3:01 PM SPIRAL WINDING MACHINE HELPER Rola Singh NP LAB MICROBIOLOGY - GENERA L ORDERABLES Final Result ALIN [id number] [address] Department [place] [address] * Albumin Creatinine Ratio, Urine (06/11/2024 10:04 AM SPIRAL WINDING MACHINE HELPER) Albumin Ur <12.0 mg/L Comment: Interpretive Data No reference range established. Current interpretive data was last revised 2018. Creatinine Ur 112.4 mg/dL [facility] Comment: Interpretive Data No reference range established. Current interpretive data was last revised 2018. Albumin Creatinine Ratio, Ur <11 1 - 29 mg/g [facility] Urine 06/11/2024 10:0 4 AM SPIRAL WINDING MACHINE HELPER 06/11/2024 3:01 PM SPIRAL WINDING MACHINE HELPER Rolazuly Singh RECORD PRESS TENDER LAB URINE ORDERABLES Elisha l Result Performing Organization Address [facility] Co de Phone Number [facility] [phone] [address] [place] [address] * (ABNORMAL) Urinalysis, microscopic only (06/11/2024 10:04 AM SPIRAL WINDING MACHINE HELPER) WBC, ur >50(A) 0 - 5 /HPF RBC, ur 3-5(A) 0 - 2 /HPF [facility] Epithelial cells, squamous, ur 1-5 0 - 5 /HPF [facility] Bacteria, ur 3+(A) [facility] Culture Reflex Comment Reflex to urine culture will be performed. [facility] Urine 06/11/2024 10:0 4 AM SPIRAL WINDING MACHINE HELPER 06/11/2024 3:01 PM SPIRAL WINDING MACHINE HELPER us Rola Singh RECORD PRESS TENDER LAB URINE ORDERABLES Elisha l Result Performing Organization Address [facility] Co de Phone Number ALIN KIMBROUGH [id number] [address] Department [place] [address] * (ABNORMAL) Urine culture Urine (06/11/2024 10:04 AM SPIRAL WINDING MACHINE HELPER) Report Final Report: Greater than or equal to 100,000 colonies/mL of Klebsiella pneumoniae Greater than or equal to 100,000 colonies/mL of Escherichia coli (.) Comment:Testing performed by : [facility], [address] [facility], [place]., [address] Organism KLEBSIELLA PNEUMONIAE [facility] Organism ESCHERICHIA COLI [facility] Urine 06/11/2024 10:0 4 AM SPIRAL WINDING MACHINE HELPER 06/11/2024 6:53 PM SPIRAL WINDING MACHINE HELPER Narrative ALIN KIMBROUGH - 06/14/2024 12:39 PM SPIRAL WINDING MACHINE HELPER Urine culture reflexed based upon urinalysis results. Testing performed by [facility] Microbiology Laboratory ([phone]) Organism Antibiotic Method Susceptibility Klebsiella pneumoniae Ampicillin [...] coli Cefdinir INTERPRETATION Susceptible us Rola Singh RECORD PRESS TENDER LAB MICROBIOLOGY - GENERA L ORDERABLES Final Result ALIN [id number] [address] Department [place] [address] * POCT glucose (06/11/2024 9:28 AM SPIRAL WINDING MACHINE HELPER) Glucose Blood, POC 134 mg/dL Blood 06/11/2024 9:28 AM SPIRAL WINDING MACHINE HELPER us Rola Singh RECORD PRESS TENDER POINT OF CARE TEST ORDERA BLES Final Result * (ABNORMAL) eGFR (06/05/2024 9:49 AM SPIRAL WINDING MACHINE HELPER) eGFR 57(L) >=60 mL/min/1. 73 m2 Comment: [...] last reviewed 2021. Blood 06/05/2024 9:49 AM SPIRAL WINDING MACHINE HELPER 06/05/2024 5:25 PM SPIRAL WINDING MACHINE HELPER us Woodrow Engel MD LAB BLOOD ORDERABLES Final Result Performing Organization Address City/State/[facility] Phone Number [facility] [phone] [address] Department [place] [address] * Differential, auto (06/05/2024 9:49 AM SPIRAL WINDING MACHINE HELPER) Neutrophil abs 4.5 1.5 - 6.5 K/cumm Imm gran abs 0.0 0.0 - 0.1 K/cumm [facility] Lymphocyte abs 1.4 0.8 - 3.3 K/cumm [facility] CH Monocyte abs 0.5 0.2 - 0.8 K/cumm CERNER Eosinophil abs 0.1 0.0 - 0.5 K/cumm [facility] Basophil abs 0.1 0.0 - 0.1 K/cumm ALIN Neutrophil pct 68.4 % [facility] Comment: Interpretive Data Percent cell count reference ranges are not reported, since discordance with absolute values may lead to misinterpretation of CBC data. Current Interpretive Data was last revised on 2017. Imm gran pct 0.5 % [facility] Comment: Interpretive Data Percent cell count reference ranges are not reported, since discordance with absolute values may lead to misinterpretation of CBC data. Current Interpretive Data was last revised on 2017. Lymphocyte pct 20.9 % [facility] Comment: Interpretive Data Percent cell count reference ranges are not reported, since discordance with absolute values may lead to misinterpretation of CBC data. Current Interpretive Data was last revised on 2017. Monocyte pct 7.9 % [facility] Comment: Interpretive Data Percent cell count reference ranges are not reported, since discordance with absolute values may lead to misinterpretation of CBC data. Current Interpretive Data was last revised on 2017. Eosinophil pct 1.5 % [facility] Comment: Interpretive Data Percent cell count reference ranges are not reported, since discordance with absolute values may lead to misinterpretation of CBC data. Current Interpretive Data was last revised on 2017. Basophil pct 0.8 % [facility] Comment: Interpretive Data Percent cell count reference ranges are not reported, since discordance with absolute values may lead to misinterpretation of CBC data. Current Interpretive Data was last revised on 2017. Blood 06/05/2024 9:49 AM SPIRAL WINDING MACHINE HELPER 06/05/2024 5:04 PM SPIRAL WINDING MACHINE HELPER us Woodrow Engel MD LAB BLOOD ORDERABLES Final Result ALIN [id number] [address] Department [place] [address] * (ABNORMAL) CBC with auto differential (06/05/2024 9:49 AM SPIRAL WINDING MACHINE HELPER) WBC 6.6 3.8 - 9.9 K/cumm Hgb 14.0 11.9 - 15.5 g/dL ALIN Hct 45.2 35.6 - 45.5 % [facility] Plt 315 150 - 400 K/cumm [facility] MPV 9.0(L) 9.1 - 12.3 fL [facility] RBC 5.29(H) 3.90 - 5.20 M/cumm [facility] MCV 85.4 81.3 - 96.4 fL [facility] MCH 26.5(L) 27.1 - 33.3 pg [facility] MCHC 31.0(L) 32.3 - 35.7 g/dL [facility] RDW CV 16.2(H) 11.1 - 14.9 % [facility] RDW SD 50.1(H) 35.7 - 48.1 fL [facility] NRBC abs 0.00 0.00 - 0.01 K/cumm [facility] Blood 06/05/2024 9:49 AM SPIRAL WINDING MACHINE HELPER 06/05/2024 5:04 PM SPIRAL WINDING MACHINE HELPER Woodrow Engel MD LAB BLOOD ORDERABLES Final Result Performing Organization Address [facility] de Phone Number ALIN KIMBROUGH [id number] [address] [employer] [place] [address] * (ABNORMAL) Hemoglobin A1c (06/05/2024 9:49 AM SPIRAL WINDING MACHINE HELPER) [facility] Signature Hgb A1C 6.7(H) 4.0 - 5.6 % Estimated Average Glucose 146 mg/dL [facility] Comment: The ADA recommends reporting an estimated Average Glucose (eAG) with all Hemoglobin A1c results using the equation derived from a study of 507 normal and diabetic adults. ??Minority populations were underrepresented and children were not included. ?? (Diabetes Care 31:9831-3840, 2008). ??The eAG is not equivalent to a fasting glucose. Blood 06/05/2024 9:49 AM SPIRAL WINDING MACHINE HELPER 06/05/2024 5:04 PM SPIRAL WINDING MACHINE HELPER Woodrow Engel MD LAB BLOOD ORDERABLES Final Result Performing Organization Address [facility] Co de Phone Number ALIN [id number] [address] Person [facility] [place] [address] * (ABNORMAL) Lipid panel (06/05/2024 9:49 AM SPIRAL WINDING MACHINE HELPER) [facility] Signature Cholesterol 232(H) 30 - 199 mg/dL [...] 3 [facility] Blood 06/05/2024 9:49 AM SPIRAL WINDING MACHINE HELPER 06/05/2024 5:04 PM SPIRAL WINDING MACHINE HELPER us Woodrow Engel MD LAB BLOOD ORDERABLES Final Result CERNER [address] [address] Department [place] [address] * Comprehensive metabolic panel (06/05/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 us Historical Provider GI PROCEDURE ORDERABLES F inal Result from Last 3 Months or Most Recently Relevant to Health Maintenance [place] [address] [facility] [place] [id number] [employer]OLD Care Teams Nutritional Health Coach Relationship Specialty Start Date End Date Woodrow Engel MD [address] [place] [address] PCP - General Family Medicine 12/02/21 Carlos Howe MD Consulting Physician Cardiology 01/05/18 [place] [id number] [address] Consulting Physician Endocrinology 04/30/21 Ami Horne OD [address] [place] [address] [place] [address] Optometry 04/30/21 Yolette Moran DPM [address] [place] [address] Consulting Physician Foot and Ankle Surg 12/02/21 Ami Horne OD [address] [place] [address] [place] [address] Optometry 06/03/22 Billie Summers MD [address] [place] [address] Consulting Physician Obstetrics and Gynecology 12/06/22
--- OUTSIDE RECORDS SUMMARY | 2024-08-03 10:03 | XMS_ITS | Continuity of Care Document ---
Author Organization [facility] Address [address] [facility] [address] [place] [address] Phone Care Team Providers Care Gin Inspector Name Role Phone Quentin FERRER MD, John [...] Provider Providers Copied on Encounter [facility], [address] [facility] [address], [place], [place], [id number], tel:[phone] [facility] No Information 8 Quentin Lopez. [address], [address], [place], [place], [id number], [place]. tel:[phone] Referring Provider: John Saavedra MD P, [address], [place], [place], [id number]. tel:[phone] [facility], [address] [place] [address], [id number], tel:[phone] [facility] No Information 8 Quentin Lopez. [address], [place], [address], [place]. tel:[phone] [facility], [address] [place] [address], [id number], tel:[phone] [facility] ZHONG no complaints OU (chief complaint)n o complaints (chief complaint)H appy with vision (chief complaint) No Information 6 Derheimer OD Emily. [address], [address] [place] [address], [id number], [place]. tel:[phone] Referring Provider: Emily Malone OD, [address] [address], [place], [address]. tel:[phone] [facility], [address] [place] [address], [id number], tel:[phone] [facility] no complaints OS (chief complaint)n o complaints (chief complaint) No Information 6 Byronheimer OD Emily. [address], [address], [place], [id number], [place]. tel:[phone] Referring Provider: Eimly Malone OD, [address], [place], [place], [address]. tel:[phone] [facility], [address] [place] [address], [id number], [place] tel:[phone] [facility] No Information 6 Quentin Lopez. [address], [place], [place], [address], [place]. tel:[phone] Referring Provider: John Saavedra MD P, [address], [place], [place], [address]. tel:[phone] OFFICE/OUTPA TIENT VISIT, [facility], [address] [place] [address], [id number], tel:[phone] [facility] ZHONG Blurry vision (chief complaint)p seudophakia check (chief complaint) Pseudoaphaki aAge-related nuclear cataract, left eye Oct- 6 Derheimer OD Emily. [address], [address], [place], [place], [id number], [place]. tel:[phone] Referring Provider: Emily Malone OD, [address], [place], [place], [address]. tel:[phone] [facility], [address] [place] [address], [id number], tel:[phone] [facility] ZHONG no pain or discomfort OD (chief complaint)d rops burn OD (chief complaint)b lurry vision OD (chief complaint)n o pain or discomfort (chief complaint)d rops burn (chief complaint)b lurry vision (chief complaint) No Information 6 Derheimer OD Emily. [address], [place], [place], [address], [place]. tel:[phone] Referring Provider: Emily Malone OD, [address], [address]. tel:[phone] [facility], [address] [place] [address], [id number], tel:[phone] [facility] No Information 6 Quentin Lopez. [address], [place], [place], [address], [place]. tel:[phone] Referring Provider: John Wu, [address], [place], [place], [address]. tel:[phone] OFFICE/OUTPA TIENT VISIT, [facility], [address], [place], [place], [id number], tel:[phone] [facility] No Information 6 Quentin Lopez. [address], [place], [place], [id number], [place]. tel:[phone] Referring Provider: John Wu, [address], [place], [place], [address]. tel:[phone] Family History Family Member Type Diagnosis Age At Onset Problem (finding) Family history of Glauc tameka Problem (finding) Family history of Diabe susanne mellitus Payers Payer name Insurance type Covered constitution party ID Authoriza tion(s) [facility] [id number] Social History Type Description Quantity Date Captured [...]
--- OUTSIDE RECORDS SUMMARY | 2024-08-03 10:03 | XMS_ITS | Clinical Summary ---
Author Organization [facility] Address [address] [place] [address] Care Team Providers Care Alto Singer Name Role Phone Carlos Howe MD Unavailable Priscilla Moran MD Unavailable [phone] Ami Horne OD Unavailable [phone] Woodrow Engel MD Primary Care Provider Yolette MoranM Unavailable [phone] Ami Horne OD Unavailable [phone] Billie Summers MD Unavailable [phone] Allergies Active Allergy Reactions Criticality Noted Date [...] hyperglycemia, without long-term current use of insulin ([facility]) One Touch Ultra Lite Test Strips Use to test blood sugar once daily. (Non insulin dependent E11.65) 100 strip 6 08/25/19 24 Active glipiZIDE (GLUCOTROL) 10 mg tabletIndicatio ns:Type 2 diabetes mellitus with hyperglycemia, without long-term current use of insulin ([facility]) Take 1 tablet (10 mg total) [...] hyperglycemia, without long-term current use of insulin ([facility]) Inject 0.25 mg under the skin once [...] 06/13 Assessment & Plan (06/19/2024 11:32 AM BUSINESS SUPPORT): A(n) yearly Medicare Annual Wellness Visit has [...] months Assessment & Plan (06/13/2023 10:46 AM BUSINESS SUPPORT): A(n) yearly Medicare Annual Wellness Visit has [...] indicated Assessment & Plan (09/05/2023 11:05 AM BUSINESS SUPPORT): Complete exam done. The patient was seen and examined with Dr. Alvarez, PGY1 Assessment & Plan (08/30/2022 9:56 AM BUSINESS SUPPORT): Complete exam done. Hormone replacement therapy (HRT) 08/30/2022 Assessment & Plan (09/05/2023 4:56 PM BUSINESS SUPPORT): She is not happy about having HF and night sweats Options discussed. She is wanting to go back on HRT after reviewing that the current recommendation is to stop after 60 as it is hard on the heart and may increase her risk of NE Currently her DM is under control She [...] mg qhs cardiac work up with her subsorter was negative. Administrative encounter 06/03/2022 Assessment & Plan (06/03/2022 1:31 PM BUSINESS SUPPORT): A(n) yearly Essence Enhanced Encounter has been performed today. Kathy Hill is up to date on screening tests. She is in need of None- no screening indicated at this time- eye exam performed this year at [facility]. She is up to date on needed preventative vaccinations Labs as ordered Referrals also ordered as requested BP is controlled Continuing current regimen Microalbuminuria due to type 2 diabetes mellitus ([facility]) 04/16/2020 Assessment & Plan (06/11/2024 9:20 AM BUSINESS SUPPORT): Resolved. On PAOLA-I / ARB: Losartan 50mg. Last MA: 01/24/23 (16). Assessment & Plan (08/25/2023 11:29 AM BUSINESS SUPPORT): Resolved. On PAOLA-I / ARB: Losartan 50mg. Last MA: 01/24/23 (16). Assessment & Plan (05/16/2023 10:55 AM BUSINESS SUPPORT): Chronic problem; improved. On PAOLA-I / ARB: Losartan 50mg. Last MA: 01/24/23 (16). Assessment & Plan (01/24/2023 10:51 AM CDT): Chronic problem. On PAOLA-I / ARB: Losartan 50mg. Last MA: 12/02/21 (45). Will update MA/Cr today. Verified that she uses [employer]. Aware to check results/results letter in [employer]. Will contact by phone if needed. Assessment & Plan (07/12/2022 10:36 AM BUSINESS SUPPORT): Pt on losartan BP and DM well controlled Assessment & Plan (01/11/2022 9:59 AM CDT): Pt on losartan BP and DM well controlled Assessment & Plan (05/02/2021 1:10 PM CDT): Continue Arb. Last microalbumin 04/08/2021 normal Assessment & Plan (01/12/2021 1:33 PM CDT): Pt on losartan BP and DM well controlled Assessment & Plan (07/28/2020 1:22 PM BUSINESS SUPPORT): Pt on losartan BP and DM well controlled Diabetes mellitus 01/05/2018 Assessment & Plan (06/11/2024 9:20 AM BUSINESS SUPPORT): Chronic problem. A1c stable at 6.7%. no changes at this time. Again discussed decreasing glipizide to 5mg bid if BG start to lower consistently. Current medications: Glipizide 10mg twice daily before breakfast & dinner Farxiga 10mg daily Ozempic 0.25mg weekly UTD on DM eye exam (09/13/23). Will update MA/Cr today. Verified that she uses [employer]. Aware to check results/results letter in [employer]. Will contact by phone if needed. Strive [...] mychart. Aware to check results/results letter in [employer]. Will contact by phone if needed. Strive [...] infection. Assessment & Plan (08/25/2023 11:31 AM BUSINESS SUPPORT): Chronic problem. A1c improved from 8.5% 05/16/23 [...] infection. Assessment & Plan (05/16/2023 11:30 AM BUSINESS SUPPORT): Chronic problem. A1c increasing steadily throughout this [...] to 5mg bid. To send me a [employer] in 1-2 weeks with BS readings. UTD on DM eye exam. Will update MA/Cr today. Verified that she uses [employer]. Aware to check results/results letter in [employer]. Will contact by phone if needed. Strive [...] infection. Assessment & Plan (07/12/2022 10:36 AM BUSINESS SUPPORT): Chronic, overall fairly controlled A1c - 7.1 [...] months Assessment & Plan (07/28/2020 1:23 PM BUSINESS SUPPORT): Chronic, Improving control A1c - 6.2 % [...] months Assessment & Plan (07/18/2019 9:07 AM BUSINESS SUPPORT): Chronic, Fair controlled A1c - 6.7 % Advise to increase Glipizide XL to 5 Mg oral daily with dinner Advise pt to check BS 2-3 x weekly Check A1c in 3 months Keep up annual dilated eye exam Daily foot care Follow up in 6 months Hypertension associated with type 2 diabetes elissa litus 01/05/2018 Assessment & Plan (06/24/2024 10:00 PM BUSINESS SUPPORT): Blood Pressure Follow-up: Lifestyle modifications education provided on sodium reduction, increase physical activity, reduce alcohol consumption, and weight reduction. A1c stable at 6.7% Continuing diltiazem CD, losartan, glipizide, Farxiga Assessment & Plan (06/11/2024 9:20 AM BUSINESS SUPPORT): Chronic problem. Controlled on current Losartan 50mg daily, diltiazem CD 360mg daily. No changes at this time. Assessment & Plan (12/26/2023 2:10 PM CDT): Chronic problem. Controlled on current Losartan 50mg daily, diltiazem CD 360mg daily. No changes at this time. Assessment & Plan (08/25/2023 11:31 AM BUSINESS SUPPORT): Chronic problem. Controlled on current Losartan 50mg daily, diltiazem CD 360mg daily. No changes at this time. Assessment & Plan (05/16/2023 10:50 AM BUSINESS SUPPORT): Chronic problem. Controlled on current Losartan 50mg [...] glipizide Assessment & Plan (07/12/2022 10:35 AM BUSINESS SUPPORT): Chronic, well controlled, continue Losartan Assessment & [...] regimen Assessment & Plan (07/28/2020 1:22 PM BUSINESS SUPPORT): Chronic, well controlled, continue current medication regimen Assessment & Plan (01/14/2020 1:35 PM CDT): Chronic, well controlled, continue current medication regimen Assessment & Plan (07/18/2019 9:08 AM BUSINESS SUPPORT): Chronic, well controlled, continue current medication regimen Hypokalemia 01/05/2018 Diastolic dysfunction without heart failure 04/03 Paroxysmal supraventricular tachycardia 07/22/19 17 Overview (10/08/2016): PSVT (paroxysmal supraventricular tachycardia) Assessment & Plan (05/02/2021 1:09 PM CDT): Well controlled on diltiazem 360 mg once daily. Continue regular follow-up with Cardiology. Assessment & Plan (06/15/2017 8:27 PM BUSINESS SUPPORT): Controlled at this time. Following with subsorter. Trochanteric bursitis 05/22/2015 Overview (10/08/2016): Trochanteric bursitis of right hip Palpitations 01/14/2014 Insomnia 01/14/2014 Assessment & Plan (06/15/2017 8:33 PM BUSINESS SUPPORT): Plan to start Ambien 5 mg at HS prn. Primary osteoarthritis of knee 12/29/2005 Other chest pain 12/10/2005 Allergic rhinitis 05/26/2004 Resolved Problems Problem Noted Date Diagnosed Date Resolved Date Encounter for medical examin [facility] to establish care 12/04/2021 01/24/2023 Assessment & [...] 04/04/2018 Assessment & Plan (06/15/2017 8:29 PM BUSINESS SUPPORT): Diabetes is well controlled. Hgb A1c today [...] Department Care Team Description 07/23/2024 11:15 AM BUSINESS SUPPORT - 07/23/2024 11:59 PM BUSINESS SUPPORT Hospital Encounter [facility] Imaging and Radiology [address] [place] [address] [phone] Screening mammogram, encounter for Discharge Disposition: Discharge to home or self care 06/19/2024 11:15 AM BUSINESS SUPPORT Office Visit [facility] Primary Care at [address] [phone] Woodrow Engel MD Medicare annual wellness visit, subsequent (Primary Dx); Microalbuminuria due to type 2 diabetes mellitus (CMS/HCC) (HCC); Hypertension associated with type 2 diabetes mellitus (HCC); Diastolic dysfunction without heart failure; Paroxysmal supraventricular tachycardia (CMS/HCC); Gastroesophageal reflux disease without esophagitis; Stage 3a chronic kidney disease (HCC) 06/15/2024 Telephone [facility] Diabetes and Endocrinology [address] [place] [phone] Rola Singh NP Test Results (Labs) 06/14/2024 Orders Only [facility] Diabetes and Endocrinology [address] [place] [phone] Rola Singh NP Acute cystitis without hematuria (Primary Dx) 06/11/2024 10:04 AM BUSINESS SUPPORT - 06/11/2024 11:59 PM BUSINESS SUPPORT Hospital Encounter [address] [address] Type 2 diabetes mellitus with hyperglycemia, without long-term current use of insulin (HCC); Cloudy urine; Foul smelling urine Discharge Disposition: Discharge to home or self care 06/11/2024 10:00 AM BUSINESS SUPPORT Lab [facility] Outpatient Lab at [address] [phone] 06/11/2024 9:30 AM BUSINESS SUPPORT Office Visit [facility] Diabetes and Endocrinology [address] [place] [phone] Rola Singh, ORAL HEALTH THERAPIST Type 2 diabetes mellitus with hyperglycemia, without long-term current use of insulin (HCC) (Primary Dx); Hypertension associated with type 2 diabetes mellitus (HCC); Cloudy urine; Foul smelling urine 06/11/2024 Telephone [facility] Diabetes and Endocrinology [address] [place] [phone] Roal Singh, TREY samples of Ozempic 06/05/2024 9:49 AM BUSINESS SUPPORT - 06/05/2024 11:59 PM BUSINESS SUPPORT Hospital Encounter [address] [address] Hypertension associated with type 2 diabetes mellitus (HCC) Discharge Disposition: Discharge to home or self care 06/05/2024 9:45 AM BUSINESS SUPPORT Lab [facility] Outpatient Lab at [address] [phone] Hypertension associated with type 2 diabetes mellitus [...] 07/04/2022(Deferr ed: Patient Refused),04/14/2022,07/04/2021(Deferre d: Patient Refused),04/03/2021,04/03/2017 [employer] Sars-Cov-2 Bivalent V accination (12+ YRS) 03/24/2022 Pneumococcal Conjugate PCV 13 08/05/2016, 014 Pneumococcal Polysaccharide PPV23 07/04/2016, RSV Vaccine, Pref, Recombina nt, Subunit, Adjuvanted, PF, IM (Arexvy) 05/08/2023 Tdap 12/28/2018 ZOSTER LIVE 07/04/2013 ZOSTER Recombinant 06/16/2020,04/16/2020 Surgical History Surgery Date Site/Laterality Comments BREAST BIOPSY 07/04/1964 Left DILATION AND CURETTAGE OF UTERUS multiple from [id number] TUBAL LIGATION 07/04/1994 - 07/03/1995 ROTATOR CUFF [...] Deloyd Prothro Diabetes Mother's Sister 1 Ailyn Allendale Hypertension Mother's Sister 1 Ailyn Skye Stomach cancer Mother's Sister 1 Ailyn Allendale Stroke Mother's Sister 2 Margy M Toro No Known Problems Paternal Grandfather No Known Problems Paternal Grandmother Diabetes Sister Deedee Johnson Hypertension Sister Deedee Johnson Obesity Sister Deedee Johnson Breast cancer Neg Hx Cancer Neg Hx no colon, breas t or emergency technician cancer 08/30/22 Endometrial cancer Neg Hx Ovarian [...] on file Legal Sex Female 4:33 PM BUSINESS SUPPORT Gender Identity Female 04/08/2020 10:03 AM CDT Sexual Orientation Straight 07/09/2019 11 :55 AM BUSINESS SUPPORT 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 Not on file Not on file Obstetrics History Para Term AB IAB SAB Ectopic Multiple Livin g Live Births 1 Date Outcome GA Total Labor Labor/2nd/3rd Weight Sex Type Anes PTL Crystal A1 A5 Name Clin 12/20 70 Term 38w 0d 2.24 kg (4 lb 15 oz) M Vag-S pont Epidura l Living Complications:None Last Filed Vital Signs Vital Sign Reading Time Taken Comments Blood Pressure 144/80 06/19/2024 11:27 AM BUSINESS SUPPORT Pulse 71 06/19/2024 11:27 AM BUSINESS SUPPORT Temperature 35.9 ??C (96.7 ??F) 06/19/2024 11:[address] Respiratory Rate 16 06/19/2024 11:27 AM BUSINESS SUPPORT Oxygen Saturation 96% 06/19/2024 11:27 AM BUSINESS SUPPORT Inhaled Oxygen Concentration - - Weight 59 kg (130 lb) 06/19/2024 11:27 AM BUSINESS SUPPORT Height 163.2 cm (5' 4.25 ) 06/19/2024 11:[address] Body Mass Index 22.14 06/19/2024 11:27 AM BUSINESS SUPPORT Plan of Treatment Health Maintenance Due Date Last Done Comments Hepatitis B Screening 1963 Foot Exam 08/25/2024 08/25/2023, 0 03/2023, 01/11/2022, Additional history exists Dilated Eye Exam 09/12/2024 09/13/2023, 01/2023, 10/03/2021, Additional history exists Hemoglobin A1C 12/04/2024 06/05/2024, 0 09/2023, 08/25/2023, Additional history exists Lipid Panel 06/05/2025 06/05/2024, 04/04, 12/05/2023, Additional history exists eGFR 06/05/2025 06/05/2024, 0 09/2023, 06/08/2023, Additional history exists Albumin Creatinine [...] 09/03/2016 Colon Cancer Screening-DNA Stool Discontinued 09/04/19 Colon Cancer Screening-FIT Discontinued 09/03/2016 Colon Cancer [...] Read Routine (OP Routine) 07/23/2024 11:36 AM BUSINESS SUPPORT Screening mammogram, encounter for URINALYSIS, MICROSCOPIC ONLY Routine 06/11/2024 10:04 AM BUSINESS SUPPORT Cloudy urine Foul smelling urine ALBUMIN CREATININE RATIO, URINE Routine 06/11/2024 10:04 AM BUSINESS SUPPORT Type 2 diabetes mellitus with hyperglycemia, without long-term current use of insulin (HCC) URINE CULTURE Routine 06/11/2024 10:04 AM BUSINESS SUPPORT URINALYSIS AND REFLEX TO MICROSCOPIC AND CULTURE Routine 06/11/2024 10:04 AM BUSINESS SUPPORT Cloudy urine Foul smelling urine POCT GLUCOSE Routine 06/11/2024 9:28 AM BUSINESS SUPPORT Type 2 diabetes mellitus with hyperglycemia, without long-term current use of insulin (HCC) EGFR Routine 06/05/2024 9:49 AM BUSINESS SUPPORT Hypertension associated with type 2 diabetes mellitus (HCC) DIFFERENTIAL AUTO Routine 06/05/2024 9:4 9 AM BUSINESS SUPPORT Hypertension associated with type 2 diabetes mellitus (HCC) HEMOGLOBIN A1C Routine 06/05/2024 9:49 AM BUSINESS SUPPORT Hypertension associated with type 2 diabetes mellitus (HCC) LIPID PANEL Routine 06/05/2024 9:49 AM BUSINESS SUPPORT Hypertension associated with type 2 diabetes mellitus (HCC) COMPREHENSIVE METABOLIC PANEL Routine 06/05/2024 9:49 AM BUSINESS SUPPORT Hypertension associated with type 2 diabetes mellitus (HCC) CBC WITH AUTO DIFFERENTIAL Routine 06/05/2024 9:49 AM BUSINESS SUPPORT Hypertension associated with type 2 diabetes mellitus [...] Mammogram Bilateral W Tay (07/23/2024 11:36 AM BUSINESS SUPPORT) Anatomical Region Laterality Modality Breast Bilateral Mammography 07/23/2024 2:37 PM BUSINESS SUPPORT Impressions 07/23/2024 2:37 PM BUSINESS SUPPORT No evidence of malignancy in either breast. FINAL ASSESSMENT: BI-RADS Category 1: Negative. RECOMMENDATION: Recommend return for annual screening mammogram in 12 months. ?? Electronically signed by: Stacey Montelongo MD Narrative 07/23/2024 2:37 PM BUSINESS SUPPORT EXAMINATION: BILATERAL SCREENING MAMMOGRAM COMPARISON: Mammography 07/21/2023, [...] microscopic and culture Urine (06/11/2024 10:04 AM BUSINESS SUPPORT) Color, ur Yellow Yellow Clarity, ur Turbid(A) [...] tendency for uric acid stone formation. Source: [facility] Sense of Skin Current Interpretive Data was last revised on [...] performed. CERNER Urine 06/11/2024 10:0 4 AM BUSINESS SUPPORT 06/11/2024 3:01 PM BUSINESS SUPPORT Rola Sinhg NP LAB MICROBIOLOGY - GENERA L ORDERABLES Final Result [facility] [address] [place] [address] * Albumin Creatinine Ratio, Urine (06/11/2024 10:04 AM BUSINESS SUPPORT) Albumin Ur <12.0 mg/L Comment: Interpretive Data No reference range established. Current interpretive data was last revised 2018. Creatinine Ur 112.4 mg/dL [facility] Comment: Interpretive Data No reference range established. Current interpretive data was last revised 2018. Albumin Creatinine Ratio, Ur <11 1 - 29 mg/g [facility] Urine 06/11/2024 10:0 4 AM BUSINESS SUPPORT 06/11/2024 3:01 PM BUSINESS SUPPORT us Rola Singh ORAL HEALTH THERAPIST LAB URINE ORDERABLES Elisha l Result Performing Organization Address [facility] Co de Phone Number [facility] [address] [place] [address] * (ABNORMAL) Urinalysis, microscopic only (06/11/2024 10:04 AM BUSINESS SUPPORT) Pathologist [facility] WBC, ur >50(A) 0 - 5 /HPF RBC, ur 3-5(A) 0 - 2 /HPF [facility] Epithelial cells, squamous, ur 1-5 0 - 5 /HPF [facility] Bacteria, ur 3+(A) [facility] Culture Reflex Comment Reflex to urine culture will be performed. [facility] Urine 06/11/2024 10:0 4 AM BUSINESS SUPPORT 06/11/2024 3:01 PM BUSINESS SUPPORT Rola Singh ORAL HEALTH THERAPIST LAB URINE ORDERABLES Elisha l Result Performing Organization Address [facility] Co de Phone Number [facility] [address] [place] [address] * (ABNORMAL) Urine culture Urine (06/11/2024 10:04 AM BUSINESS SUPPORT) Pathologist [facility] Report Final Report: Greater than or equal to 100,000 colonies/mL of Klebsiella pneumoniae Greater than or equal to 100,000 colonies/mL of Escherichia coli (.) Comment:Testing performed by : [facility], [address] [place] [address] Organism KLEBSIELLA PNEUMONIAE ALIN Organism ESCHERICHIA COLI ALIN Urine 06/11/2024 10:0 4 AM BUSINESS SUPPORT 06/11/2024 6:53 PM BUSINESS SUPPORT Narrative ALIN - 06/14/2024 12:39 PM BUSINESS SUPPORT Urine culture reflexed based upon urinalysis results. Testing performed by [facility] ([phone]) Organism Antibiotic Method Susceptibility Klebsiella pneumoniae Ampicillin [...] - GENERA L ORDERABLES Final Result [facility] [address] [place] [address] * POCT glucose (06/11/2024 9:28 AM BUSINESS SUPPORT) Glucose Blood, POC 134 mg/dL Blood 06/11/2024 9:28 AM BUSINESS SUPPORT us Rola Singh NP POINT OF CARE TEST ORDERA BLES Final Result * (ABNORMAL) eGFR (06/05/2024 9:49 AM BUSINESS SUPPORT) eGFR 57(L) >=60 mL/min/1. 73 m2 Comment: [...] last reviewed 2021. Blood 06/05/2024 9:49 AM BUSINESS SUPPORT 06/05/2024 5:25 PM BUSINESS SUPPORT us Woodrow Engel MD LAB BLOOD ORDERABLES Final Result [facility] [address] [place] [address] * Differential, auto (06/05/2024 9:49 AM BUSINESS SUPPORT) Neutrophil abs 4.5 1.5 - 6.5 K/cumm Imm gran abs 0.0 0.0 - 0.1 K/cumm [facility] Lymphocyte abs 1.4 0.8 - 3.3 K/cumm [facility] Monocyte abs 0.5 0.2 - 0.8 K/cumm [facility] Eosinophil abs 0.1 0.0 - 0.5 K/cumm [facility] Basophil abs 0.1 0.0 - 0.1 K/cumm [facility] Neutrophil pct 68.4 % [facility] Comment: Interpretive Data Percent cell count reference ranges are not reported, since discordance with absolute values may lead to misinterpretation of CBC data. Current Interpretive Data was last revised on 2017. Imm gran pct 0.5 % [facility] Comment: Interpretive Data Percent cell count reference ranges are not reported, since discordance with absolute values may lead to misinterpretation of CBC data. Current Interpretive Data was last revised on 2017. Lymphocyte pct 20.9 % [facility] Comment: Interpretive Data Percent cell count reference ranges are not reported, since discordance with absolute values may lead to misinterpretation of CBC data. Current Interpretive Data was last revised on 2017. Monocyte pct 7.9 % [facility] Comment: Interpretive Data Percent cell count reference ranges are not reported, since discordance with absolute values may lead to misinterpretation of CBC data. Current Interpretive Data was last revised on 2017. Eosinophil pct 1.5 % [facility] Comment: Interpretive Data Percent cell count reference ranges are not reported, since discordance with absolute values may lead to misinterpretation of CBC data. Current Interpretive Data was last revised on 2017. Basophil pct 0.8 % [facility] Comment: Interpretive Data Percent cell count reference ranges are not reported, since discordance with absolute values may lead to misinterpretation of CBC data. Current Interpretive Data was last revised on 2017. Blood 06/05/2024 9:49 AM BUSINESS SUPPORT 06/05/2024 5:04 PM BUSINESS SUPPORT us Woodrow Engel MD LAB BLOOD ORDERABLES Final Result [facility] [address] [place] [address] * (ABNORMAL) CBC with auto differential (06/05/2024 9:49 AM BUSINESS SUPPORT) WBC 6.6 3.8 - 9.9 K/cumm Hgb 14.0 11.9 - 15.5 g/dL [facility] Hct 45.2 35.6 - 45.5 % [facility] Plt 315 150 - 400 K/cumm [facility] MPV 9.0(L) 9.1 - 12.3 fL [facility] RBC 5.29(H) 3.90 - 5.20 M/cumm [facility] MCV 85.4 81.3 - 96.4 fL [facility] MCH 26.5(L) 27.1 - 33.3 pg [facility] MCHC 31.0(L) 32.3 - 35.7 g/dL [facility] RDW CV 16.2(H) 11.1 - 14.9 % [facility] RDW SD 50.1(H) 35.7 - 48.1 fL [facility] NRBC abs 0.00 0.00 - 0.01 K/cumm [facility] Blood 06/05/2024 9:49 AM BUSINESS SUPPORT 06/05/2024 5:04 PM BUSINESS SUPPORT Woodrow Engel MD LAB BLOOD ORDERABLES Final Result [facility] [address] [place] [address] * (ABNORMAL) Hemoglobin A1c (06/05/2024 9:49 AM BUSINESS SUPPORT) Pathologist [facility] Hgb A1C 6.7(H) 4.0 - 5.6 % Estimated Average Glucose 146 mg/dL [facility] Comment: The ADA recommends reporting an estimated Average Glucose (eAG) with all Hemoglobin A1c results using the equation derived from a study of 507 normal and diabetic adults. ??Minority populations were underrepresented and children were not included. ?? (Diabetes Care 31:0500-7248, 2008). ??The eAG is not equivalent to a fasting glucose. Blood 06/05/2024 9:49 AM BUSINESS SUPPORT 06/05/2024 5:04 PM BUSINESS SUPPORT us Woodrow Engel MD LAB BLOOD ORDERABLES Final Result Performing Organization Address City/State/ZIP Co mi Phone Number [facility] [address] [facility] [place] [address] * (ABNORMAL) Lipid panel (06/05/2024 9:49 AM BUSINESS SUPPORT) Cholesterol 232(H) 30 - 199 mg/dL Comment: [...] NCEP Expert Panel. Circulation 2004;110:227 3. Omkar Mendoza al. RACHEL Cardiol. 2020 November 01;5(5):540-548. doi: [email or web address] Current Interpretive Data was last revised on 2024. Non-HDL Cholesterol 142 mg/dL [facility] Comment: Interpretive Data Ages < or = [...] revised on 2018. Chol/HDL ratio 3 CERNER Blood 06/05/2024 9:49 AM BUSINESS SUPPORT 06/05/2024 5:04 PM BUSINESS SUPPORT Woodrow Engel MD LAB BLOOD ORDERABLES Final Result Performing Organization Address City/State/ZIP Co mi Phone Number [facility] [address] Department [place] [address] * Comprehensive metabolic panel (06/05/2024 9:49 AM BUSINESS SUPPORT) Sodium 143 135 - 145 mmol/L Potassium, pl 4.5 3.3 - 4.9 mmol/L [facility] Chloride 105 97 - 110 mmol/L [facility] CO2 27 22 - 32 mmol/L [facility] Anion gap 11 2 - 15 mmol/L [facility] BUN 17 6 - 25 mg/dL [facility] Creatinine 1.02 0.60 - 1.10 mg/dL [facility] Glucose 165 70 - 199 mg/dL [facility] Comment: Interpretive Data Fasting glucose >/= 126 [...] Units/L [facility] Blood 06/05/2024 9:49 AM BUSINESS SUPPORT 06/05/2024 5:04 PM BUSINESS SUPPORT us Woodrow Engel MD LAB BLOOD ORDERABLES Final Result [facility] [address] [place] [address] * Dexa Axial Skeleton Bone Density 1 [...] DIABETES EYE EXAM (09/13/2023 9:59 AM CDT) us Historical Provider HEALTH MAINTENANCE Final Result * Hepatitis C antibody (12/28/2018 11:29 AM CDT) Hep C Ab Negative Negative ALIN KIMBROUGH Blood specimen (specimen) 12/28/2018 11:29 AM CDT 12/28/2018 1:20 PM CDT Gurwinder Pardo NP LAB MICROBIOLOGY - GENERAL [place] [address] [place] [address] * COLONOSCOPY REPORT (09/03/2016) Anatomical Region Laterality Modality Other Narrative 09/03/2016 Ordered by an unspecified provider. us Historical Provider GI PROCEDURE ORDERABLES F inal Result from Last 3 Months or Most Recently Relevant to Health [place] [id number] [employer] GOLD T MEDICARE [facility] Care Teams [place] Relationship Specialty Start Date End Date Woodrow Engel MD [address] [place] [address] PCP - General Family Medicine 12/02/21 Carlos Howe MD Consulting Physician Cardiology 01/05/18 [place] [id number] [address] Consulting Physician Endocrinology 04/30/21 Ami Horne OD [address] [place] [address] [place] [address] Optometry 04/30/21 Yolette Moran DPM [address] [place] [id number] Consulting Physician Foot and Ankle Surg 12/02/21 Ami Horne OD [address] [place] [address] [place] [address] Optometry 06/03/22 Billie Summers MD [address] [place] [address] [address] Consulting Physician Obstetrics and Gynecology 12/06/22
[2024-08-03] MEDS: TETANUS,DIPHTHERIA,AC PERTUSSIS ADULT (0.5 ML) BOOSTRIX IM (10:06)
== END 2024-08-03 11:52 | disposition home or self-care (01) ==
PROVIDERS: Emergency Provider Physician Assistant; PCP Family Medicine
DX: S02.2XXA Fracture of nasal bones, initial encounter for closed fracture (principal); S02.32XA Fracture of orbital floor, left side, initial encounter for closed fracture; S02.40DA Maxillary fracture, left side, initial encounter for closed fracture; S01.511A Laceration without foreign body of lip, initial encounter; Z23 Encounter for immunization; I10 Essential (primary) hypertension; E11.9 Type 2 diabetes mellitus without complications; K21.9 Gastro-esophageal reflux disease without esophagitis; Z90.710 Acquired absence of both cervix and uterus; Z90.79 Acquired absence of other genital organ(s); Z90.722 Acquired absence of ovaries, bilateral; Z79.84 Long term (current) use of oral hypoglycemic drugs; Z79.899 Other long term (current) drug therapy; W18.30XA Fall on same level, unspecified, initial encounter
CPT/HCPCS: 12011; 70450; 70486; 71046; 71100; 72125; 90471; 90715; 99284